=== PATIENT | female | born 1980 | race Caucasian/White ===

== ENCOUNTER 2020-08-08 09:24 | Outpatient (REF) | payer OTHER, MEDICAID, SELFPAY ==
[2020-08-08 11:04] LABS: MANUAL DIFF FLAG NO
[2020-08-08 11:12] LABS: Basophils Percent Auto 0.7 % (0-2); Eosinophils Absolute Auto 0.2 X10*3/uL (0.0-0.4); Eosinophils Percent Auto 4.2 % (0-4); Hematocrit 31.6 % (37-47); Hemoglobin 9.8 g/dl (12.0-16.0); Imm Gran Abs Auto 0.01 X10*3/uL (0.00-0.03); Imm Gran Pct Auto 0.2 % (0.0-0.4); Lymphocytes Absolute Auto 2.2 X10*3/uL (1.2-4.9); Lymphocytes Percent Auto 49.6 % (20-40); Mean Corpuscular Volume 80.6 fL (80-98); Mean Platelet Volume 10.6 fL (9.4-12.3); Monocytes Absolute Auto 0.4 X10*3/uL (0.1-1.2); Monocytes Percent Auto 8.9 % (2-11); Neutrophils Absolute Auto 1.6 X10*3/uL (2.0-8.3); Neutrophils Percent Auto 36.4 % (45-73); Platelet Count 244 X10*3/uL (160-400); Red Blood Count 3.92 X10*6/uL (4.20-5.50); Red Cell Distribution Width 13.9 % (11.0-16.0); White Blood Count 4.5 X10*3/uL (4.8-10.8)
[2020-08-08 12:08] LABS: Thyroid Stimulating Hormone 2.96 uIU/mL (0.32-4.0)
[2020-08-09 09:13] LABS: BV Int Neg Control Negative (Negative); BV Int Pos Control Positive (Positive)
[2020-08-09 18:27] LABS: C. trachomatis RNA TMA NOT DETECTED (NOT DETECTED); N. gonorrhoeae RNA TMA NOT DETECTED (NOT DETECTED)
[2020-08-14 02:32] LABS: HPV mRNA E6/E7 rflx Not Detected (Not Detected)
== END 2020-08-08 09:25 | disposition home or self-care (01) ==
LOC: HO.LAB 09:24
PROVIDERS: PCP Internal Medicine; Visit Provider Advanced Practice Midwife
DX: Z12.4 Encounter for screening for malignant neoplasm of cervix (principal); N93.9 Abnormal uterine and vaginal bleeding, unspecified; N92.1 Excessive and frequent menstruation with irregular cycle
CPT/HCPCS: 36415; 84443; 85025; 87480; 87491; 87510; 87591; 87624; 87660; 88142

== ENCOUNTER 2020-08-20 10:38 | Outpatient (REF) | payer OTHER, MEDICAID, SELFPAY ==
--- NOTE | 2020-08-20 10:43 | MM_ITS ---
EXAMINATION: MM SCREENING DIGITAL MAMMOGRAPHY, BILATERAL CLINICAL INFORMATION: Screening. Asymptomatic. No prior breast imaging. Age 40. No known family history breast cancer. The lifetime risk of breast cancer based on the Tyrer-Cuzick Model is 9%. COMPARISON: None (current study represents initial baseline exam). TECHNIQUE: Digital mammography is performed in craniocaudal and mediolateral oblique views along with computer-aided detection (CAD). FINDINGS: There are scattered areas of fibroglandular density (ACR BI-RADS breast composition Category b). There are no significant masses, abnormal calcifications, or other abnormalities. The axilla and skin contours are unremarkable. MM/MM screening mammo BI IMPRESSION: No mammographic evidence of malignancy. ASSESSMENT: BI-RADS 1: Negative RECOMMENDATION: Routine annual mammography screening. This patient's information was entered into a reminder system with a target due date for their next mammogram.
== END 2020-08-20 10:39 | disposition home or self-care (01) ==
LOC: HO.MAMMO 10:38
PROVIDERS: Visit Provider Advanced Practice Midwife
DX: Z12.31 Encounter for screening mammogram for malignant neoplasm of breast (principal)
CPT/HCPCS: 77067

== ENCOUNTER 2020-08-21 11:09 | Outpatient (REF) | payer OTHER, MEDICAID, SELFPAY ==
--- NOTE | 2020-08-21 11:13 | US_ITS ---
EXAMINATION: PELVIC ULTRASOUND CLINICAL INFORMATION: Abnormal uterine vaginal bleeding COMPARISON: Previous CT of the abdomen and pelvis December 2015 and pelvic ultrasound November 2015 TECHNIQUE: Transabdominal and transvaginal pelvic ultrasound was performed. Transvaginal exam was performed for better visualization of the uterus and ovaries. FINDINGS: Uterus is anteverted and measures 8.2 x 4.4 x 5.1 cm in dimension. No focal uterine lesion is seen. Endometrial thickness is normal estimated at 1.1 cm. The right ovary is normal-appearing and measures 2.6 x 1.4 x 1.6 cm. The left ovary measures 2.8 x 1.9 x 2 cm and contains a 1.7 x 1.6 x 1.8 cm simple cyst. There is no fluid in the pelvis. US/US pelvic complete IMPRESSION: Unremarkable exam.
--- NOTE | 2020-08-21 11:13 | US_ITS ---
EXAMINATION: PELVIC ULTRASOUND CLINICAL INFORMATION: Abnormal uterine vaginal bleeding COMPARISON: Previous CT of the abdomen and pelvis December 2015 and pelvic ultrasound November 2015 TECHNIQUE: Transabdominal and transvaginal pelvic ultrasound was performed. Transvaginal exam was performed for better visualization of the uterus and ovaries. FINDINGS: Uterus is anteverted and measures 8.2 x 4.4 x 5.1 cm in dimension. No focal uterine lesion is seen. Endometrial thickness is normal estimated at 1.1 cm. The right ovary is normal-appearing and measures 2.6 x 1.4 x 1.6 cm. The left ovary measures 2.8 x 1.9 x 2 cm and contains a 1.7 x 1.6 x 1.8 cm simple cyst. There is no fluid in the pelvis. US/US transvaginal IMPRESSION: Unremarkable exam.
== END 2020-08-21 11:10 | disposition home or self-care (01) ==
LOC: HO.US 11:09
PROVIDERS: Visit Provider Advanced Practice Midwife
DX: N93.9 Abnormal uterine and vaginal bleeding, unspecified (principal)
CPT/HCPCS: 76830; 76856

== ENCOUNTER 2020-11-16 16:52 | Outpatient (REF) | payer OTHER, MEDICAID, SELFPAY ==
--- NOTE | ~2020-11-16 | US_ITS ---
EXAMINATION: US VENOUS ULTRASOUND WITH DOPPLER LOWER EXTREMITY, RIGHT CLINICAL INFORMATION: Pain COMPARISON: None TECHNIQUE: Ultrasound of the deep veins is performed from the hip to the calf with compression sonography and color and pulse Doppler assessment. Spectral analysis with color-flow imaging is performed. FINDINGS: There is normal venous compression and respiratory variation and augmented flow. The visualized common femoral vein, superficial femoral vein, profunda femoral vein, popliteal vein, and the trifurcation region shows no evidence of deep venous thrombosis. There is no significant popliteal fossa cyst. If the patient's symptoms persist, followup ultrasound in 5 days 7 days might be of value to exclude proximal propagation from a non-visualized calf vein. US/US venous duplex LE RT IMPRESSION: No DVT demonstrated in the right lower extremity.
== END 2020-11-16 16:53 | disposition home or self-care (01) ==
LOC: HO.US 16:52
PROVIDERS: PCP Internal Medicine; Visit Provider Nurse Practitioner Family
DX: M79.661 Pain in right lower leg (principal)
CPT/HCPCS: 93971

== ENCOUNTER → 2020-12-03 10:21 | Outpatient (BNV) | payer OTHER, MEDICAID, SELFPAY | PROVIDERS: PCP Internal Medicine; Visit Provider Internal Medicine | DX: I26.99 Other pulmonary embolism without acute cor pulmonale (principal) | CPT/HCPCS: 99213; 99214 ==

== ENCOUNTER 2020-12-05 15:51 | Outpatient (REF) | payer OTHER, MEDICAID, SELFPAY ==
--- NOTE | ~2020-12-05 | US_ITS ---
EXAMINATION: US VENOUS ULTRASOUND WITH DOPPLER LOWER EXTREMITY, BILATERAL CLINICAL INFORMATION: Left lower leg pain. COMPARISON: None TECHNIQUE: Ultrasound of the deep veins is performed from the hip to the calf with compression sonography and color and pulse Doppler assessment. Spectral analysis with color-flow imaging is performed. FINDINGS: RIGHT: There is normal venous compression and respiratory variation and augmented flow. The visualized common femoral vein, superficial femoral vein, profunda femoral vein, popliteal vein, and the trifurcation region shows no evidence of deep venous thrombosis. There is no popliteal cyst. The subcutaneous soft tissues are unremarkable. LEFT: There is normal venous compression and respiratory variation and augmented flow. The visualized common femoral vein, superficial femoral vein, profunda femoral vein, popliteal vein, and the trifurcation region shows no evidence of deep venous thrombosis. There is no popliteal cyst. The subcutaneous soft tissues are unremarkable. If the patient's symptoms persist, followup ultrasound in 5 days 7 days might be of value to exclude proximal propagation from a non-visualized calf vein. US/US venous duplex LE BI IMPRESSION: No evidence for deep venous thrombosis in the visualized veins of the bilateral lower extremities.
== END 2020-12-05 15:52 | disposition home or self-care (01) ==
LOC: HO.US 15:51
PROVIDERS: PCP Internal Medicine; Visit Provider Internal Medicine
DX: M79.662 Pain in left lower leg (principal)
CPT/HCPCS: 93970

== ENCOUNTER 2021-01-11 08:03 | Outpatient (REF) | payer OTHER, MEDICAID, SELFPAY | END 2021-01-11 08:04 | disposition home or self-care (01) | LOC: HO.MDS 08:03 | PROVIDERS: PCP Internal Medicine; Visit Provider Internal Medicine | DX: D50.9 Iron deficiency anemia, unspecified (principal) | CPT/HCPCS: 96365; 96366; J1200; J1750; Q0163 ==

== ENCOUNTER 2021-01-18 10:58 | Emergency (ER) | payer OTHER, MEDICAID, SELFPAY ==
--- NOTE | ~2021-01-18 | XR_ITS ---
EXAMINATION: XR CHEST CLINICAL INFORMATION: Chest pain. COMPARISON: Chest radiographs dated 07/26/2019. TECHNIQUE: Frontal view of the chest was obtained. FINDINGS: No significant abnormality is noted involving the heart, lungs, mediastinum, bony thorax or soft tissues. XR/XR chest 1V IMPRESSION: Unremarkable examination.
--- NOTE | ~2021-01-18 | CT_ITS ---
EXAMINATION: CT ANGIOGRAM OF THE CHEST WITH AND WITHOUT CONTRAST (CT PULMONARY ANGIOGRAM FOR PE) CLINICAL INFORMATION: Reason for Exam history of PE now with pleuritic chest pain COMPARISON: Previous chest x-ray most recent from earlier the same day TECHNIQUE: Prior to contrast administration, noncontrast localization images were obtained. Subsequently, multidetector volumetric imaging was performed from the thoracic inlet to below the diaphragms following the administration of 80 mL Omnipaque 350 intravenous contrast. No contrast reaction reported Sagittal, coronal, and MIP oblique sagittal reformatted images were obtained on the CT workstation, uploaded to PACS, and reviewed. This CT examination was performed using dose optimization techniques as appropriate, variously including the following: *Automated exposure control *Adjustment of mA and/or kV according to patient size (this includes techniques or standardized protocols for targeted exams where dose is matched to indication/reason for exam; i.e. extremities or head) *Use of iterative reconstruction technique Total exam dose-length product 292 mGy-cm FINDINGS: QUALITY OF STUDY/CONTRAST BOLUS: Satisfactory. PULMONARY ARTERIES: No central or segmental pulmonary emboli. THORACIC AORTA: No aneurysm or dissection. LUNG: There is a 3 mm peripheral or subpleural left upper lobe nodule axial image 84 series 7. There is a 4 mm peripheral or subpleural right upper lobe nodule adjacent to the major fissure axial image 129 series 7. There is a 2 mm calcified right lower lobe nodule axial image 253 series 7. The lungs are otherwise clear. PLEURA: No pleural effusion or pneumothorax. MEDIASTINUM: Normal heart size. No pericardial effusion. There are small bilateral hilar lymph nodes. No enlarged hilar or mediastinal lymphadenopathy. No evidence of septal bowing or right heart strain. CHEST WALL/AXILLA: There are small bilateral axillary lymph nodes. No enlarged axillary lymph nodes or chest wall mass is seen. OSSEOUS STRUCTURES: No acute or suspicious osseous abnormality. UPPER ABDOMEN: There are postsurgical changes to the stomach. No reflux of contrast into the hepatic veins to suggest elevated right heart pressures. CT/CT angio chest PE protocol IMPRESSION: No evidence of pulmonary embolism. Small bilateral pulmonary nodules, largest measuring 4 mm. According to the UPDATED 2017 Fleischner Society recommendations, the advised follow-up imaging for less than 6 mm nodule: Low risk, no chest CT follow-up and high risk, optional chest CT follow-up in one year. VTE: negative
[2021-01-18 11:25] VITALS: BP 103/74; PULSE 65; RESP 18; TEMP 36.7; O2SAT 99; BMI 30.2
--- NOTE | 2021-01-18 11:37 | ED_ITS ---
HPI - Chest Pain General Chief Complaint: Chest Pain Stated Complaint: chest pain Time Seen by Provider: 01/18/21 11:24 Source: patient Mode of arrival: ambulatory Limitations: no limitations History of Present Illness HPI narrative: Patient presents to ED for pleuritic chest pain, tingling left upper extremity, and burning sensation in throat for 3 days. Patient states no fever, coughing, chills, abdominal pain, recent trauma, dysuria, hematuria, flank pain, swelling of lower extremities, calf pain, coughing up blood. Patient states she was compliant with Eliquis. Patient denies any rectal bleeding, vomiting blood, coughing up blood. Related Data Home Medications Medication Instructions Recorded Confirmed acetaminophen [Mapap Arthritis 1 tab PO BID 12/03/20 12/28/20 Pain] apixaban [Eliquis] 1 tab PO BID 12/03/20 01/18/21 Previous Rx's Medication Instructions Recorded ferrous sulfate [Feosol] 325 mg PO BID #60 tab 12/04/20 chlorhexidine gluconate 0.12 % 15 ml MUCOUS MEMBRANE BID 7 Days 12/11/20 mouthwash #210 ml lidocaine HCl 2 % mucosal solution 15 ml MUCOUS MEMBRANE QID PRN 7 12/11/20 Days #100 ml alum-mag hydroxide-simeth [Maalox 10 ml PO Q6H PRN #3000 ml 01/18/21 Advanced] famotidine [Pepcid] 20 mg PO BID 15 Days #30 tab 01/18/21 Allergies Allergy/AdvReac Type Severity Reaction Status Date / Time latex Allergy Rash Verified 01/18/21 10:31 Review of Systems Review of Systems: Yes all other systems are reviewed and are negative Constitutional: Constitutional: Reports as per HPI and Reports no additional constitutional complaints Eyes: Eyes: Reports as per HPI and Reports no additional eye complaints ENT: Reports system reviewed and no additional complaints, except as documented and Reports as per HPI Comments: Burning sensation in throat. Cardiovascular: Cardiovascular: Reports as per HPI, Reports no additional cardiovascular complaints and Reports chest pain (Pleuritic) Respiratory: Respiratory: Reports as per HPI, Reports no additional respiratory complaints and Reports pain on inspiration Gastrointestinal: Gastrointestinal: Reports as per HPI, Reports no additional gastrointestinal complaints and Reports heartburn Genitourinary: Genitourinary: Reports no additional female genitourinary complaints and Reports as per HPI Musculoskeletal: Musculoskeletal: Reports no additional musculoskeletal complaints and Reports as per HPI Neurologic: Reports system reviewed and no additional complaints, except as documented and Reports as per HPI Psychiatric: Psychiatric: Reports no additional psychiatric complaints and Reports as per HPI [facility] Past Medical History Medical History Abnormal uterine bleeding (AUB) Anemia Eczema Pulmonary embolism Thyroid nodule Ulnar neuropathy Surgical History H/O toe surgery Hx of tubal ligation Family History Family History Father Hyperlipidemia Heart disease Mother Hyperlipidemia Diabetes mellitus Social History Social History Alcohol intake: never Patient Tobacco Use Status: Former Tobacco user Quit Date: quit 6 years ago Smoked in Last 30 Days: No Use of substances other than those prescribed or required for medical reasons: No Advance Directives: No Advance Directives Information Provided: No Patient : No Sexual orientation: Straight/Heterosexual Physical Exam Vital Signs: Vital Signs: Last Vital Signs Temp 98.3 F 01/18/21 16:24 Pulse 60 01/18/21 16:24 Resp 18 01/18/21 16:24 BP 111/62 01/18/21 16:24 Pulse Ox 99 01/18/21 16:24 Body Mass Index 30.2 Const: General: cooperative, healthy appearing, comfortable, no acute distress, well developed, alert, awake and Physically active Orientation/consciousness: patient oriented x3 HENMT: Head: Yes normal to inspection, Yes No palpable skull fracture present, Yes normocephalic, Yes atraumatic and No abrasion Eyes: General: appearance normal, both eyes and all related structures Neck: Neck: Yes normal visual inspection, Yes full ROM, Yes no lymphadenopathy, Yes no meningeal signs, Yes trachea midline, Yes supple and No tender Chest: Chest palpation & inspection: normal inspection of the chest and normal palpation of entire chest wall Resp: Effort & Inspection: normal respiratory effort and able to speak in complete sentences Auscultation: clear to auscultation bilaterally Cardio: Jugular venous distension: no JVD Heart sounds: S1 normal heart sound present and S2 normal heart sound present GI: Inspection: Yes normal to inspection and No abdominal wall ecchymosis Palpation (GI): Soft to palpation, not firm, nontender, no guarding and not rigid : General: No CVA tenderness and Yes no CVA tenderness Back/Spine/Pelvis: Back: no CVA tenderness, No CVA tenderness and No back tenderness Skin: General skin exam: no rashes or lesions noted and elasticity normal Neuro: Other: Negative for any neuro deficit General: patient oriented x3, gait normal, no meningeal signs and CN's II-XI intact bilaterally Cranial nerves: Yes CN's II-XII intact bilaterally Extrem: Other: lower Extremities negative for swelling, pitting edema, or calf tenderness General: Yes normal to inspection and Yes full ROM Psych: Appearance: grossly normal, well kempt and not disheveled Course Course Course Narrative: Patient will have medical evaluation. EKG troponin will be ordered. Patient presents for repeat chest CTA. Patient given GI cocktail Reevaluation(s) Reevaluation #1: Patient's initial troponin negative. Patient chest x-ray normal. Patient COVID swab negative. Patient liver enzymes have been negative. Due to history of recent PE and pleuretic chest pain patient will be sent for chest CT to rule out PE. BNP negative. Patient's symptoms improved after GI cocktail Time: 12:10 Reevaluation #2: Chest CTA came back negative for PE, pneumonia, or dissection. Second troponin negative. Patient is safe for discharge. Patient made aware of pulmonary nodules. Time: 17:48 MDM - Chest Pain MDM Narrative Medical decision making narrative: GERD pleurisy Lab Data Result diagrams: 01/18/21 12:10 01/18/21 12:10 Labs: Lab Results 01/18/21 01/18/21 01/18/21 Range/Units 12:10 12:10 12:10 WBC 4.0 L (4.8-10.8) X10*3/uL RBC 4.15 L (4.20-5.50) X10*6/uL Hgb 11.0 L (12.0-16.0) g/dl Hct 34.1 L (37-47) % MCV 82.2 (80-98) fL MCH 26.5 L (27.0-33.0) pg MCHC 32.3 (31.0-35.0) g/dl RDW 18.3 H (11.0-16.0) % Plt Count 205 D (160-400) X10*3/uL MPV 9.8 (9.4-12.3) fL Immature Gran % (Auto) 0.2 (0.0-0.4) % Neut % (Auto) 53.3 (45-73) % Lymph % (Auto) 32.8 (20-40) % Bullitt % (Auto) 9.0 (2-11) % Eos % (Auto) 4.0 (0-4) % Baso % (Auto) 0.7 (0-2) % Lymph # (Auto) 1.3 (1.2-4.9) X10*3/uL Bullitt # (Auto) 0.4 (0.1-1.2) X10*3/uL Eos # (Auto) 0.2 (0.0-0.4) X10*3/uL Baso # (Auto) 0.0 (0.0-0.2) X10*3/uL Abs Immat Gran (auto) 0.01 (0.00-0.03) X10*3/uL Absolute Neuts (auto) 2.1 (2.0-8.3) X10*3/uL Absolute Nucleated RBC 0.000 (0.0-0.012) X10*3/uL Nucleated RBC % (auto) 0.0 (0.0-0.2) /100WBC PT 16.6 H (10.8-13.0) SEC INR 1.4 H (0.9-1.1) APTT 39.7 H (24.1-38.0) SEC Sodium 138 (135-145) mmol/L Potassium 4.5 (3.3-5.1) mmol/L Chloride 105 (96-108) mmol/L Carbon Dioxide 26 (22-29) mmol/L Anion Gap 12 (12-20) BUN 10 D (9-16) mg/dL Creatinine 0.66 (0.5-1.4) mg/dL Estim Creat Clear Calc 120.2 Estimated GFR > 60 Random Glucose 86 (60-115) mg/dL Calcium 8.9 (8.4-10.2) mg/dL Total Bilirubin 0.2 (0.0-1.0) mg/dL AST 29 D (5-31) U/L ALT 32 H (0-31) U/L Alkaline Phosphatase 72 (39-117) U/L Troponin I High Sens (<3.5-17.0) ng/L B-Natriuretic Peptide (<100) pg/mL Total Protein 6.8 (6.5-8.0) g/dL Albumin 4.0 (3.5-5.0) g/dL Beta HCG, Quant < 2 mIU/mL COVID-19 (ERIBERTO) (Negative) COVID-19 Clin Com 01/18/21 01/18/21 01/18/21 Range/Units 12:10 14:31 16:19 WBC (4.8-10.8) X10*3/uL RBC (4.20-5.50) X10*6/uL Hgb (12.0-16.0) g/dl Hct (37-47) % MCV (80-98) fL MCH (27.0-33.0) pg MCHC (31.0-35.0) g/dl RDW (11.0-16.0) % Plt Count (160-400) X10*3/uL MPV (9.4-12.3) fL Immature Gran % (Auto) (0.0-0.4) % Neut % (Auto) (45-73) % Lymph % (Auto) (20-40) % Bullitt % (Auto) (2-11) % Eos % (Auto) (0-4) % Baso % (Auto) (0-2) % Lymph # (Auto) (1.2-4.9) X10*3/uL Bullitt # (Auto) (0.1-1.2) X10*3/uL Eos # (Auto) (0.0-0.4) X10*3/uL Baso # (Auto) (0.0-0.2) X10*3/uL Abs Immat Gran (auto) (0.00-0.03) X10*3/uL Absolute Neuts (auto) (2.0-8.3) X10*3/uL Absolute Nucleated RBC (0.0-0.012) X10*3/uL Nucleated RBC % (auto) (0.0-0.2) /100WBC PT (10.8-13.0) SEC INR (0.9-1.1) APTT (24.1-38.0) SEC Sodium (135-145) mmol/L Potassium (3.3-5.1) mmol/L Chloride (96-108) mmol/L Carbon Dioxide (22-29) mmol/L Anion Gap (12-20) BUN (9-16) mg/dL Creatinine (0.5-1.4) mg/dL Estim Creat Clear Calc Estimated GFR Random Glucose (60-115) mg/dL Calcium (8.4-10.2) mg/dL Total Bilirubin (0.0-1.0) mg/dL AST (5-31) U/L ALT (0-31) U/L Alkaline Phosphatase (39-117) U/L Troponin I High Sens < 3.5 < 3.5 (<3.5-17.0) ng/L B-Natriuretic Peptide 19 (<100) pg/mL Total Protein (6.5-8.0) g/dL Albumin (3.5-5.0) g/dL Beta HCG, Quant mIU/mL COVID-19 (ERIBERTO) Negative (Negative) COVID-19 Clin Com See Note ECG Data ECG #1: Interpretation: Normal sinus rhythm. Low-voltage QRS. Ventricular rate 61. Pr interval 130. QRS 88. QTC 424. Negative STEMI Discharge Plan Discharge Clinical Impression: Pleurisy, GERD (gastroesophageal reflux disease) Patient Disposition: Home, Self-Care Instructions: Chest Pain (ED), Pleurisy (ED), Gastroesophageal Reflux Disease (ED) Additional Instructions: Return to the ED immediately for worsening chest pain, shortness of breath, swelling of lower extremities, calf pain, coughing up blood, abdominal pain, fever, chills, rectal bleeding, vomiting blood, or any other concerning symptoms. Your EKG and troponin were negative for heart attack. Chest CTA was negative for blood clot, pneumonia, or dissection. Your liver enzymes were normal. Kidney function were normal. Your blood cell count is as your baseline. Negative elevated white blood cell count. Please follow-up with your PCP Prescriptions: New famotidine [Pepcid] 20 mg tablet 20 mg PO BID 15 Days Qty: 30 RF: 0 alum-mag hydroxide-simeth [Maalox Advanced] 200-200-20 mg/5 mL suspension 10 ml PO Q6H PRN (Reason: GERD) Qty: 3000 RF: 0 No Action acetaminophen [Mapap Arthritis Pain] 650 mg tablet extended release 1 tab PO BID RF: 0 Eliquis 5 mg tablet 1 tab PO BID RF: 0 ferrous sulfate [Feosol] 325 mg (65 mg iron) Tablet 325 mg PO BID Qty: 60 RF: 3 lidocaine HCl [Lidocaine Viscous] 2 % solution 15 ml mucous membrane QID PRN (Reason: pain) 7 Days Qty: 100 RF: 0 chlorhexidine gluconate 0.12 % mouthwash 15 ml mucous membrane BID 7 Days Qty: 210 RF: 0 Referrals: Cydney Kern MD [Primary Care Provider] - 2 days (Seen in the ED for pleuritic chest pain and GERD like symptoms. EKG was normal. Troponins were negative. Chest CTA negative for PE.) Stand Alone Forms: Work/School Release Discharge Date/Time: 01/18/21 18:10 Print Language: Chinese
--- NOTE | 2021-01-18 11:37 | ECG_ITS ---
Test Reason : CHEST PAIN Blood Pressure : / mmHG Vent. Rate : 061 BPM Atrial Rate : 061 BPM P-R Int : 130 ms QRS Dur : 088 ms QT Int : 422 ms P-R-T Axes : -01 060 026 degrees QTc Int : 424 ms Normal sinus rhythm Low voltage QRS Borderline ECG When compared with ECG of 27-DEC-2015 22:43, No significant changes seen Referred By: Jeremiah Tinoco Electronically Signed By:MURALI ORTEZ
[2021-01-18 12:00] VITALS: BP 101/68; PULSE 61; RESP 15; TEMP 36.8; O2SAT 98
[2021-01-18 12:15] LABS: MANUAL DIFF FLAG NO
[2021-01-18 12:16] LABS: Basophils Percent Auto 0.7 % (0-2); Eosinophils Absolute Auto 0.2 X10*3/uL (0.0-0.4); Hematocrit 34.1 % (37-47); Imm Gran Abs Auto 0.01 X10*3/uL (0.00-0.03); Imm Gran Pct Auto 0.2 % (0.0-0.4); Lymphocytes Absolute Auto 1.3 X10*3/uL (1.2-4.9); Lymphocytes Percent Auto 32.8 % (20-40); Mean Corpuscular HGB Conc 32.3 g/dl (31.0-35.0); Mean Corpuscular Hemoglobin 26.5 pg (27.0-33.0); Mean Corpuscular Volume 82.2 fL (80-98); Mean Platelet Volume 9.8 fL (9.4-12.3); Monocytes Absolute Auto 0.4 X10*3/uL (0.1-1.2); Neutrophils Absolute Auto 2.1 X10*3/uL (2.0-8.3); Neutrophils Percent Auto 53.3 % (45-73); Platelet Count 205 X10*3/uL (160-400); Red Blood Count 4.15 X10*6/uL (4.20-5.50); Red Cell Distribution Width 18.3 % (11.0-16.0)
[2021-01-18 12:21] LABS: INTERNATIONAL NORM RATIO 1.4 (0.9-1.1); Prothrombin Time 16.6 SEC (10.8-13.0)
[2021-01-18 12:24] LABS: Partial Thromboplastin Time 39.7 SEC (24.1-38.0)
[2021-01-18 12:39] LABS: Alanine Aminotransferase 32 U/L (0-31); Alkaline Phosphatase 72 U/L (39-117); Anion Gap 12 (12-20); Aspartate Amino Transferase 29 U/L (5-31); Bilirubin Total 0.2 mg/dL (0.0-1.0); Blood Urea Nitrogen 10 mg/dL (9-16); Calcium 8.9 mg/dL (8.4-10.2); Carbon Dioxide 26 mmol/L (22-29); Chloride 105 mmol/L (96-108); Creatinine Clr Calc Pharmacy 120.2; Estimated Glomerular Filt Rate > 60; Glucose Random 86 mg/dL (60-115); Potassium 4.5 mmol/L (3.3-5.1); Sodium 138 mmol/L (135-145); Total Protein 6.8 g/dL (6.5-8.0)
[2021-01-18 12:46] LABS: B Type Natriuretic Peptide 19 pg/mL (<100); Troponin-I High Sensitivity < 3.5 ng/L (<3.5-17.0)
[2021-01-18 12:47] LABS: HCG Quantitative < 2 mIU/mL
[2021-01-18 14:34] VITALS: BP 102/64; PULSE 63; RESP 13; TEMP 36.9; O2SAT 100
--- NOTE | 2021-01-18 14:44 | PC.NURSE ---
TAKEN TO CT SCAN, WORKUP NEGATIVE ON LAB WORK. NAD. WILL MEDICATE FOR PAIN ONCE BACK FROM CT SCAN.
[2021-01-18] MEDS: Famotidine/PF 20 MG/2 ML VIAL IVPUSH (14:52)
[2021-01-18] MEDS: 0.9 % Sodium Chloride 1,000 ML 999 ML IV (14:52)
[2021-01-18] MEDS: Lidocaine HCl Viscous 2 % 15 ML SOLUTION MUCOUS MEM (14:52)
[2021-01-18] MEDS: Magnesium Hydrox/Alum Hydrox 30 ML ORAL.SUSP PO (14:52)
[2021-01-18] MEDS: iohexoL 350 MG/ML 100 ML INFUS..BTL IV (14:54)
[2021-01-18 15:05] LABS: COVID-19 Test Negative (Negative)
[2021-01-18 16:24] VITALS: BP 111/62; PULSE 60; RESP 18; TEMP 36.8; O2SAT 99
[2021-01-18 17:06] LABS: Troponin-I High Sensitivity < 3.5 ng/L (<3.5-17.0)
== END 2021-01-18 18:10 | disposition home or self-care (01) ==
PROVIDERS: Physician Assistant; Emergency Provider Emergency Medicine; PCP Internal Medicine
DX: R09.1 Pleurisy (principal); K21.9 Gastro-esophageal reflux disease without esophagitis; Z86.711 Personal history of pulmonary embolism; Z79.01 Long term (current) use of anticoagulants; Z20.822 Contact with and (suspected) exposure to COVID-19
CPT/HCPCS: 36415; 71045; 71275; 80053; 83880; 84484; 84702; 85025; 85610; 85730; 87635; 93005; 96361; 96374; 99285; Q9967

== ENCOUNTER 2021-06-05 15:42 | Outpatient (REF) | payer OTHER, MEDICAID, SELFPAY ==
--- NOTE | ~2021-06-05 | XR_ITS ---
EXAMINATION: XR SHOULDER, LEFT CLINICAL INFORMATION: Left shoulder pain COMPARISON: None TECHNIQUE: Three views of the left shoulder. FINDINGS: No fracture or dislocation. The glenohumeral joint is well aligned. The joint space is maintained. The acromioclavicular joint is intact. The visualized lung is clear. The visualized ribs are intact. XR/XR shoulder LT min 2V IMPRESSION: Normal left shoulder.
== END 2021-06-05 15:43 | disposition home or self-care (01) ==
LOC: HO.HMGCX 15:42
PROVIDERS: Visit Provider Internal Medicine
DX: M25.512 Pain in left shoulder (principal)
CPT/HCPCS: 73030

== ENCOUNTER 2021-06-13 08:38 | Outpatient (REF) | payer OTHER, MEDICAID, SELFPAY ==
--- NOTE | 2021-06-13 08:41 | EMG_ITS ---
Bilateral tibial and peroneal motor studies were performed. Bilateral superficial peroneal and sural sensory studies were performed. Tibial H-reflexes were obtained and paraspinal muscles were tested with a needle. IMPRESSION: This study revealed mild to moderate, demyelinating and axonal, somewhat patchy peripheral neuropathy. I recommend investigating for conditions that could result in this type of neuropathy including autoimmune causes. MD SY Dominguez/KYA / [id number]
== END 2021-06-13 08:39 | disposition home or self-care (01) ==
LOC: HO.NEURO 08:38
PROVIDERS: Visit Provider Internal Medicine
DX: R20.8 Other disturbances of skin sensation (principal)
CPT/HCPCS: 95861; 95886; 95911

== ENCOUNTER 2021-08-01 08:58 | Outpatient (REF) | payer OTHER, MEDICAID, SELFPAY ==
[2021-08-01 09:47] LABS: Rheumatoid Factor < 15.0 IU/mL (<15.0)
[2021-08-01 10:09] LABS: HIV AB/AG Nonreactive (Nonreactive)
[2021-08-01 10:35] LABS: HIV Num 1 0.07 S/CO (0.00-0.99)
[2021-08-01 15:45] LABS: Influenza A PCR NEGATIVE (Negative); Influenza B PCR NEGATIVE (Negative); Resp Syncy Virus RNA Qual PCR NEGATIVE (Negative); SARS COV2 PCR INHOUSE POSITIVE (Negative)
[2021-08-02 05:02] LABS: Lyme Abs Screen <0.90 index
[2021-08-02 08:44] LABS: Syphilis Screen Nonreactive (Nonreactive)
[2021-08-04 13:05] LABS: Anti Nuclear Antibody Screen NEGATIVE (NEGATIVE)
[2021-08-05 11:31] LABS: Complement C3 112 mg/dL (83-193)
[2021-08-06 16:21] LABS: Anti DNA DS Antibody <1 IU/mL
== END 2021-08-01 08:59 | disposition home or self-care (01) ==
LOC: HO.LAB 08:58
PROVIDERS: Physician Assistant; PCP Internal Medicine; Visit Provider Psychiatry & Neurology Neurology
DX: Z11.4 Encounter for screening for human immunodeficiency virus [HIV] (principal); Z20.822 Contact with and (suspected) exposure to COVID-19; J02.9 Acute pharyngitis, unspecified
CPT/HCPCS: 0241U; 86038; 86039; 86160; 86225; 86335; 86431; 86617; 86618; 86780; 87389

== ENCOUNTER → 2021-08-12 12:55 | Outpatient (BNVA) | payer OTHER, MEDICAID, SELFPAY | PROVIDERS: PCP Internal Medicine; Visit Provider Advanced Practice Midwife ==

== ENCOUNTER 2021-08-12 14:02 | Outpatient (REF) | payer OTHER, MEDICAID, SELFPAY ==
[2021-08-12 15:22] LABS: Thyroid Stimulating Hormone 1.26 uIU/mL (0.32-4.0)
[2021-08-13 10:47] LABS: Follicle Stimulating Hormone 5.9 mIU/mL
== END 2021-08-12 14:03 | disposition home or self-care (01) ==
LOC: HO.LAB 14:02
PROVIDERS: PCP Internal Medicine; Visit Provider Advanced Practice Midwife
DX: R23.2 Flushing (principal)
CPT/HCPCS: 36415; 83001; 84443

== ENCOUNTER 2022-02-19 14:48 | Outpatient (REF) | payer OTHER, MEDICAID, SELFPAY ==
--- NOTE | ~2022-02-19 | XR_ITS ---
EXAMINATION: XR LUMBOSACRAL SPINE CLINICAL INFORMATION: Radiculopathy. COMPARISON: None TECHNIQUE: Three views of the lumbosacral spine. FINDINGS: There is normal lumbar lordosis. The vertebral heights, alignment and disc heights are normal. There is no visible acute fracture, dislocation or lytic process seen. The soft tissues are normal XR/XR lumbar spine 2-3V IMPRESSION: Unremarkable lumbar spine exam.
[2022-02-19 16:24] LABS: MANUAL DIFF FLAG NO
[2022-02-19 16:28] LABS: Basophils Percent Auto 0.5 % (0-2); Eosinophils Absolute Auto 0.2 X10*3/uL (0.0-0.4); Eosinophils Percent Auto 3.8 % (0-4); Hematocrit 38.1 % (37.0-47.0); Hemoglobin 12.6 g/dl (12.0-16.0); Imm Gran Abs Auto 0.01 X10*3/uL (0.00-0.03); Imm Gran Pct Auto 0.3 % (0.0-0.4); Lymphocytes Absolute Auto 1.5 X10*3/uL (1.2-4.9); Lymphocytes Percent Auto 37.1 % (20-40); Mean Corpuscular HGB Conc 33.1 g/dl (31.0-35.0); Mean Corpuscular Hemoglobin 29.8 pg (27.0-33.0); Mean Corpuscular Volume 90.1 fL (80.0-98.0); Mean Platelet Volume 10.3 fL (9.4-12.3); Monocytes Absolute Auto 0.3 X10*3/uL (0.1-1.2); Monocytes Percent Auto 8.1 % (2-11); Neutrophils Percent Auto 50.2 % (45-73); Platelet Count 229 X10*3/uL (160-400); Red Blood Count 4.23 X10*6/uL (4.20-5.50); Red Cell Distribution Width 12.5 % (11.0-16.0)
[2022-02-19 16:50] LABS: Estimated Average Glucose 91 mg/dL; Hemoglobin A1c % 4.8 %
[2022-02-19 16:59] LABS: Alanine Aminotransferase 23 U/L (0-31); Albumin Level 4.1 g/dL (3.5-5.0); Alkaline Phosphatase 77 U/L (39-117); Anion Gap 7 (12-20); Aspartate Amino Transferase 22 U/L (5-31); Bilirubin Total 0.3 mg/dL (0.0-1.0); Blood Urea Nitrogen 11 mg/dL (9-16); Calcium 8.7 mg/dL (8.4-10.2); Carbon Dioxide 31 mmol/L (22-29); Chloride 104 mmol/L (96-108); Estimated Glomerular Filt Rate > 60; Glucose Random 74 mg/dL (60-115); Potassium 4.2 mmol/L (3.3-5.1); Sodium 138 mmol/L (135-145); Total Protein 6.9 g/dL (6.5-8.0)
[2022-02-19 17:21] LABS: Vitamin B12 257 pg/mL (200-900)
[2022-02-25 14:06] LABS: Vitamin D 25-OH, D2 <4 ng/mL; Vitamin D 25-OH, D3 18 ng/mL; Vitamin D 25-OH, Total 18 ng/mL (30-100)
== END 2022-02-19 14:49 | disposition home or self-care (01) ==
LOC: HO.HMGCX 14:48
PROVIDERS: PCP Internal Medicine; Visit Provider Internal Medicine
DX: M79.672 Pain in left foot (principal); M79.671 Pain in right foot; M54.16 Radiculopathy, lumbar region; E16.2 Hypoglycemia, unspecified; R53.83 Other fatigue
CPT/HCPCS: 36415; 72100; 80053; 82306; 82607; 83036; 84443; 85025

== ENCOUNTER 2022-05-13 15:00 | Outpatient (RCR) | payer OTHER, MEDICAID, SELFPAY ==
[2022-04-21 07:05] VITALS: BP 106/67; PULSE 69; O2SAT 98
--- NOTE | 2022-04-21 08:35 | MHC.PT.EP ---
[facility] [place] Office [place] Office [place] Office [address] Dia Zuniga [address] [phone] F: [phone] F: [phone] F: [phone] F: [phone] Physical Therapy Plan of Care Date of Evaluation: Date of Surgery: Diagnosis: right hip, psoas tendinitis Assessment: 42 YO FEMALE REF TO PT W Rt PSOAS/ HIP PAIN x 2 MONTHS-> SHE NOTES INITIAL ONSET 4 YRS AGO, INSIDIOUS ONSET PER Pt, AND HAD PRIOR PT W RESOLUTION OF SXS. 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 SHE HAS A H/O 4 VAGINAL BIRTHS AND CURRENTLY DENIES RADICULAR SXS OR BOWEL/BLADDER SIGNS/SXS. OBJECTIVE FINDINGS: DECR POSTURAL AWARENESS, (+) PELVIC ASYMMETRY, DECR HIP FLEXIB Rt, (+) LUMBOPELVIC/ PROX LEs WEAKNESS, (+) SOFT TISSUE IRRIT Rt HIP FLEXORS, AND PAIN Rt ASIS/ Rt YUNIEL/ Rt GROIN. FUNCTIONALLY, Pt NOTES DIFFIC WITH STAIR MGMT, PROLONGED AMBULATION, RUNNING/ MORE INTENSE EXER, HEAVY LIFTING, AND PROLONGED STANDING. Pt WOULD BENEFIT FROM PT TO ADDRESS THE ABOVE FINDINGS AND DEV A HEP/ SELF-SX MGMT PROGRAM TO ENABLE HER TO RESUME REG ADLs/ WORK TASKS. Frequency and Duration: The patient will be seen 2 x WK x 5 WKS Short Term Goals: *Pt'S RIGHT PROX LE PAIN DECR TO 2-10/10 *Pt INCREASE Rt HIP FLEXIBILITY AND TRUNK AROM *INCR FLEXIB IN PSOAS/ CALF MM TO IMPROVE EFFICIENCY OF GAIT ON LEVEL GROUND AND Pt DEMON STAIR MGMT W/O PAIN OR Rt GROIN SXS LIMITING HER Death Clearance Coordinator Goals: Pt INDEP W HEP PROGRESSION AND SELF-SX MGMT STRATEGIES IN 5 WKS Pt RESUME REG ADLs EVIDENT W IMPROVED LEFI SCORE BY 8-10 POINTS (AT EVAL 45/80 ) IN 5 WKS Pt INCR LE STRENGTH BY 1 GRADE IN 5 WKS Treatment Plan: Modalities to reduce pain, spasms and effusion. Manual therapy to restore motion and function. Therapeutic exercise to improve strength and flexibility. Neuromuscular re-education for posture and balance. Therapeutic activities to return to functional activities of daily living. Electronically signed by: Ainsley Muñoz PT Please sign and return to therapist. Thank you for your referral.
--- NOTE | 2022-07-01 09:57 | MHC.PT.DC ---
[facility] [place] [facility] [place] Office [place] Office [address] Dia Zuniga [address] [phone] F: [phone] F: [phone] F: [phone] F: [phone] Physical Therapy Discharge Report Diagnosis: right hip, psoas tendinitis Date of Surgery: Date of Evaluation: 04/21/22 Date of Discharge: Treatments to Date: 6 Cancellations to Date: 2 No Shows to Date: 1 Discharge Status: Improved Function Independent with HEP Patient Elected to Stop Discharge Summary: THE Pt HAD BEEN PROGRESSING WITH PT INTERVENTION- HER PAIN WAS RESOLVING AND HER GLUTE/ PROX LEs STRENGTH/ LUMBAR STAB WAS IMPROVING. WE ALSO ADDRESSED HER POSTURE AND BODY MECH. Pt HAS A THOROUGH AND PROGRESSIVE HEP. SHE DID NOT ATTEND HER LAST FEW PT APPTS AND THEREFORE, A FORMAL RE-ASSESSMENT WAS NOT PERFORMED. Electronically signed by: LUCIANO PLAZA,PT Please sign and return to therapist. Thank you for your referral.
== END 2022-07-01 09:57 | disposition home or self-care (01) ==
LOC: HO.PT 15:00
PROVIDERS: PCP Internal Medicine; Visit Provider Internal Medicine
DX: M76.11 Psoas tendinitis, right hip (principal)
CPT/HCPCS: 97110; 97140; 97162

== ENCOUNTER 2022-06-11 13:40 | Outpatient (REF) | payer OTHER, MEDICAID, SELFPAY ==
[2022-06-13 03:16] LABS: Follicle Stimulating Hormone 36.7 mIU/mL
== END 2022-06-11 13:41 | disposition home or self-care (01) ==
LOC: HO.LAB 13:40
PROVIDERS: PCP Internal Medicine; Visit Provider Advanced Practice Midwife
DX: R23.2 Flushing (principal)
CPT/HCPCS: 36415; 83001

== ENCOUNTER → 2022-08-18 07:51 | Outpatient (BNVA) | payer OTHER, MEDICAID, SELFPAY | PROVIDERS: Visit Provider Advanced Practice Midwife | DX: Z01.419 Encounter for gynecological examination (general) (routine) without abnormal findings (principal) ==

== ENCOUNTER 2022-09-12 07:51 | Outpatient (REF) | payer OTHER, MEDICAID, SELFPAY ==
--- NOTE | ~2022-09-12 | MM_ITS ---
EXAMINATION: MM SCREENING DIGITAL BREAST TOMOSYNTHESIS, BILATERAL CLINICAL INFORMATION: Screening. Asymptomatic. The lifetime risk of breast cancer based on the Tyrer-Cuzick Model is 12%. COMPARISON: Mammography: 08/20/2020 (baseline) TECHNIQUE: Digital breast tomosynthesis is performed in both the craniocaudal and mediolateral oblique views along with computer-aided detection (CAD). Synthesized 2D images are generated from the tomosynthesis. FINDINGS: There are scattered areas of fibroglandular density (ACR BI-RADS breast composition Category b). There are no significant masses, abnormal calcifications, or other abnormalities. No significant change from baseline exam. No architectural abnormality. The axilla and skin contours are unremarkable. MM/MM tomosynthesis screening BI IMPRESSION: No mammographic evidence of malignancy. ASSESSMENT: BI-RADS 1: Negative RECOMMENDATION: Routine annual mammography screening. This patient's information was entered into a reminder system with a target due date for their next mammogram.
== END 2022-09-12 07:52 | disposition home or self-care (01) ==
LOC: HO.MAMMO 07:51
PROVIDERS: Visit Provider Advanced Practice Midwife
DX: Z12.31 Encounter for screening mammogram for malignant neoplasm of breast (principal)
CPT/HCPCS: 77063; 77067

== ENCOUNTER 2022-09-19 14:49 | Outpatient (REF) | payer OTHER, MEDICAID, SELFPAY ==
--- NOTE | ~2022-09-19 | US_ITS ---
EXAMINATION: US PELVIS CLINICAL INFORMATION: Oligomenorrhea. LMP January 2022. COMPARISON: Pelvic ultrasound 08/21/2020. TECHNIQUE: Ultrasound of the pelvis is performed using both transabdominal and transvaginal transducers along with Doppler. Transvaginal imaging is performed due to inadequate visualization transabdominally. FINDINGS: The uterus is anteverted and anteflexed measuring 11.9 x 4 x 6 cm. No focal uterine lesion noted. Nonspecific enlarged/tortuous intramural vessels. The endometrium measures 14 mm in thickness with small amount of anechoic fluid. The ovaries are symmetric in size with preserved flow at the moment of this examination. The right ovary measures 3.6 x 2.4 x 3 cm, 13.6 mL and the left ovary measures 4.1 x 2.5 x 3.2 cm, 17.2 mL. There is preserved flow to both ovaries at the moment of this examination. There are multiple simple appearing functional follicles in both ovaries, for which no imaging follow-up is recommended. No significant free fluid. US/US pelvic and transvaginal IMPRESSION: The endometrium measures 14 mm in thickness with a small volume of free fluid. This is considered within normal limits for a premenopausal patient, correlate with certainty of the menstrual history. Nonspecific engorged uterine vessels which could be physiologic.
== END 2022-09-19 14:50 | disposition home or self-care (01) ==
LOC: HO.US 14:49
PROVIDERS: Visit Provider Advanced Practice Midwife
DX: N91.5 Oligomenorrhea, unspecified (principal)
CPT/HCPCS: 76830; 76856

== ENCOUNTER → 2022-09-25 07:55 | Outpatient (BNVA) | payer OTHER, MEDICAID, SELFPAY | PROVIDERS: Visit Provider Advanced Practice Midwife | DX: Z13.89 Encounter for screening for other disorder (principal) ==

== ENCOUNTER 2022-12-11 09:19 | Outpatient (REF) | payer OTHER, MEDICAID, SELFPAY ==
--- NOTE | ~2022-12-11 | XR_ITS ---
X-RAY LUMBAR SPINE X-RAY SACRUM/COCCYX CLINICAL HISTORY: Radiculopathy. COMPARISON: X-ray lumbar spine 02/19/2022. TECHNIQUE: 3 views of the lumbar spine. 3 views of the sacrum/coccyx. FINDINGS: Lumbar spine: No evidence of acute compression deformity or traumatic subluxation. Mild intervertebral disc height loss and facet arthropathy at L5-S1 with some degree of neural foraminal encroachment. SI joints are symmetric. Surgical clips are noted projecting over the left hemiabdomen. Nonobstructive bowel gas pattern. Sacrum/coccyx: No displaced fractures. SI joints are symmetric. Pubic symphysis is maintained. Multiple small pelvic phleboliths are seen. XR/XR lumbar spine 2-3V IMPRESSION: 1. No acute compression deformity or traumatic subluxation. 2. Mild degenerative changes at L5-S1. If indicated, correlation with an MR of the lumbar spine could be obtained.
--- NOTE | ~2022-12-11 | XR_ITS ---
X-RAY LUMBAR SPINE X-RAY SACRUM/COCCYX CLINICAL HISTORY: Radiculopathy. COMPARISON: X-ray lumbar spine 02/19/2022. TECHNIQUE: 3 views of the lumbar spine. 3 views of the sacrum/coccyx. FINDINGS: Lumbar spine: No evidence of acute compression deformity or traumatic subluxation. Mild intervertebral disc height loss and facet arthropathy at L5-S1 with some degree of neural foraminal encroachment. SI joints are symmetric. Surgical clips are noted projecting over the left hemiabdomen. Nonobstructive bowel gas pattern. Sacrum/coccyx: No displaced fractures. SI joints are symmetric. Pubic symphysis is maintained. Multiple small pelvic phleboliths are seen. XR/XR sacrum coccyx min 2V IMPRESSION: 1. No acute compression deformity or traumatic subluxation. 2. Mild degenerative changes at L5-S1. If indicated, correlation with an MR of the lumbar spine could be obtained.
== END 2022-12-11 09:20 | disposition home or self-care (01) ==
LOC: HO.HMGCX 09:19
PROVIDERS: PCP Internal Medicine; Visit Provider Internal Medicine
DX: M54.16 Radiculopathy, lumbar region (principal); M53.3 Sacrococcygeal disorders, not elsewhere classified
CPT/HCPCS: 72100; 72220

== ENCOUNTER 2023-03-17 08:50 | Outpatient (REF) | payer OTHER, MEDICAID, SELFPAY ==
--- NOTE | ~2023-03-17 | MR_ITS ---
MR LUMBAR SPINE WITHOUT CONTRAST CLINICAL INFORMATION: Lumbar region radiculopathy. COMPARISON: Lumbar spine radiographs December 11, 2022. Lumbar spine MRI May 25, 2014. TECHNIQUE: MRI of the lumbar spine was obtained using routine sequences without contrast. FINDINGS: There are 5 nonrib-bearing lumbar-type vertebral bodies. There are hypoplastic ribs at the lowermost thoracic type segment. Lumbar alignment is maintained. Vertebral body heights are preserved. Modic type I endplate signal changes on the left side at T12-L1 and anteriorly at L2-L3. No additional bone marrow edema. No acute fractures. Conus terminates at the T12-L1 level. Extrarenal pelvises bilaterally. Partially imaged 2.5 cm right adnexal cyst. Findings are overwhelmingly likely to represent a normal ovarian follicle. No followup imaging recommended. L1-L2: Disc contour is normal. There is no central canal stenosis and there is no foraminal stenosis. L2-L3: New small annular disc bulge and mild bilateral facet arthropathy. No central canal stenosis and no foraminal stenosis. L3-L4: Diffuse annular disc bulge the superimposed shallow central disc protrusion associated with an annular fissure that continues to mildly narrow the central canal, unchanged in comparison to the prior study. Disc osteophyte and facet arthropathy result in mild bilateral foraminal encroachment which is unchanged. L4-L5: Progressive shallow left paracentral disc protrusion associated with an annular fissure resulting in mass effect on the traversing left L5 nerve root within the left subarticular zone. Background annular disc bulge and moderate bilateral facet arthropathy. There is mild foraminal encroachment bilaterally. L5-S1: Diffuse annular disc bulge and mild bilateral facet arthropathy. There is no central canal stenosis. A far left lateral disc osteophyte protrusion likely mildly contacts the extraforaminal left L5 nerve root which is unchanged. MR/MR lumbar spine wo con IMPRESSION: - At L5-S1, a far left lateral disc osteophyte protrusion likely mildly contacts the extraforaminal left L5 nerve root which is unchanged. - At L4-L5, there is a progressive shallow left paracentral disc protrusion associated with an annular fissure resulting in mass effect on the traversing left L5 nerve root within the left subarticular zone. - At L3-L4, a shallow central disc protrusion associated with an annular fissure continues to mildly narrow the central canal. - Modic type I endplate signal changes on the left side at T12-L1 and anteriorly at L2-L3.
== END 2023-03-17 08:51 | disposition home or self-care (01) ==
LOC: HO.MRI 08:50
PROVIDERS: PCP Internal Medicine; Visit Provider Psychiatry & Neurology Neurology
DX: M54.16 Radiculopathy, lumbar region (principal)
CPT/HCPCS: 72148

== ENCOUNTER 2023-05-06 09:18 | Outpatient (AMB) | payer OTHER, SELFPAY ==
--- NOTE | 2023-05-06 09:54 | HO.SPINEOV ---
Intake Intake Visit Reasons: radiculopathy Intake Note: Ms. Palacios is here today c/o low back pain into right hip and upper thigh. [place] [facility] [place] [employer] Service [employer] Helper Required: No Allergies latex Allergy (Verified 01/27/23 13:14) Rash Assessment & Plan Assessment & Plan (1) Sacral pain: Code(s): M53.3 - Sacrococcygeal disorders, not elsewhere classified (2) SI (sacroiliac) joint dysfunction: Code(s): M53.3 - Sacrococcygeal disorders, not elsewhere classified Plan Dear colleague Thank you for referring Alona Palacios to the office today with a chief complaint of right hip pain. HPI: This 43-year-old female developed pain in the right hip area approximately 1 year ago. It started with pain on the medial side of her thigh but now it is more around the SI joint area and buttock. The pain can radiate down to her calf. Sitting for prolonged periods time increases the pain. She had to stop twice during a recent car ride to [place]. Sleeping is painful. Standing or walking increases the pain. She has bilateral foot numbness and was diagnosed with polyneuropathy. PMH: Pulmonary embolism, bypass surgery Medications: Acetaminophen, ferrous sulfate famotidine Eliquis Allergies: Latex Social history: , 4 children. Works 2 full-time jobs. Physical Exam: Pleasant female. If pain on palpation over the iachiadic notch. Roger test produces mild pain on the right side. Straight leg raise negative. No motor deficits. Sensory deficits bilaterally up to the ankle. Radiological Studies: MRI done at [facility] shows mild degenerative disc disease L3-4 L4-5 and L5-S1 without spinal stenosis or nerve root compression Impression/Plan: This patient is suffering from pain in the right hip/SI joint area. An MRI of the his lumbar spine shows no surgical pathology. I would like to refer her to Pain Management for a right SI joint injection. Thank you for allowing me to participate in your patients care. total time spent was 50 minutes in counseling ,coordination of plan, personal review of imaging, surgical decision making and subsequent plan Levon Perdue MD, PhD Spine Fellowship Trained Neurosurgeon Director, [facility] Orders: Referrals Pain Management Referral M53.3 - Sacrococcygeal disorders, not elsewhere classified Coding Level of Care Code New Pt Level 4 (60871) Diagnoses Sacral pain M53.3 SI (sacroiliac) joint dysfunction M53.3
== END 2023-05-06 10:38 | disposition home or self-care (01) ==
PROVIDERS: PCP Internal Medicine; Referring Provider Internal Medicine; Visit Provider Neurological Surgery
DX: M53.3 Sacrococcygeal disorders, not elsewhere classified (principal)
CPT/HCPCS: 99204

== ENCOUNTER → 2023-05-06 09:18 | Outpatient (BNVA) | payer OTHER, MEDICAID, SELFPAY | PROVIDERS: PCP Internal Medicine; Visit Provider Neurological Surgery ==

== ENCOUNTER 2023-05-14 07:56 | Outpatient (AMB) | payer OTHER, SELFPAY ==
[2023-05-14 08:16] VITALS: BP 112/70; PULSE 68; RESP 18; O2SAT 99; BMI 28.5
--- NOTE | 2023-05-14 08:16 | MHC.OFFVIS ---
Intake Vital Signs 05/14/23 08:16 Height 5 ft 5 in Weight 171 lb 8 oz BMI 28.5 BP 112/70 Blood Pressure Location Lt brachial Position Sitting Respiration 18 Pulse 68 Pulse Source Pulse Oximeter Pulse Oximetry (%) 99 Oxygen Delivery Method Room Air Intake Visit Reasons: Right SI joint injection/ CONFIRMED Allergies latex Allergy (Verified 05/14/23 08:10) Rash HPI HPI Comments History of Present Illness Details Alona is very pleasant 43 years old female who presents in my office with complains on pain in the projection of the buttock with minimal radiation to the right hip she reported that this pain started few years ago. She tried physical therapy and NSAIDs to treat this pain without any success. She was referred by primary care physician to Dr. Perdue for neurosurgical evaluation however Dr. Perdue did not find any indications to perform neuro surgery. She received MRI of the lumbar spine which is indicative of Modic type 2 changes at L2-L3 level which is dictated in the note of the radiologist, however after evaluation of the MRI I think Modic 1 type changes positive in L5-S1 level as well. We would need confirmation from radiologist on the changes. Dr. Bangura so recommended diagnostic right sacroiliac joint injection to figure out this patient's pain generator. She reports her pain 6/10 to 10/10. She reports difficulty with prolong sitting and pain increase with flexing forward. 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 She reports that to 1 of her work sites will be close soon and she will be working less hours a week. She relatively healthy individual however she had pulmonary embolism 2 years ago and she is started on Eliquis. She reports today that she does not take Eliquis on regular basis. She reports that she can not stop Eliquis 4 days before the procedure. She reports that she started smoking 2 months ago after 8 years of nonsmoking interval. she denies drinking alcohol she denies recreational drugs. [facility]LY [facility] Medical History Anemia Eczema Pulmonary embolism Thyroid nodule Ulnar neuropathy Surgical History H/O toe surgery Hx of tubal ligation Family History Father Heart disease Hyperlipidemia Mother Diabetes mellitus Hyperlipidemia Maternal Aunt History of breast cancer Social History Household Members: Spouse and Children Housing: House Are you a primary adult daycare coordinator to a significant other at home: No Do you presently have visiting nurse or other home services: No Alcohol intake: never Patient Tobacco Use Status: Current everyday Tobacco user Years Smoked: 17 yrs e-Cigarette/Vaping Use: Never Used Second Hand Smoke Exposure: Yes service: No Current occupational status: employed 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 Sexual orientation: Straight/Heterosexual Cognitive needs: No Hearing needs: No Vision needs: No Review of Systems Const All systems reviewed & are unremarkable except as noted in HPI and below Eyes Reports no additional complaints ENT Reports Normal hearing present Card Reports as per HPI and Reports no additional complaints Resp Reports no additional complaints Musc Reports as per HPI Neuro Reports Normal hearing present, Denies Abnormal speech present, Denies confusion and Denies Sensory deficit (Neuro) Psych Denies confusion Physical Exam Vital Signs: Last Vital Signs Pulse 68 05/14/23 08:16 Resp 18 05/14/23 08:16 BP 112/70 05/14/23 08:16 Pulse Ox 99 05/14/23 08:16 Oxygen Delivery Method Room Air 05/14/23 08:16 BMI result Body Mass Index 28.5 Const General: no acute distress; No confusion Orientation/consciousness: patient oriented x3 and No confusion Eyes General: appearance normal, both eyes and all related structures Pupils: Equal, round and reactive pupils present EOM: EOMs intact bilaterally Neck Neck: Yes full ROM Chest Chest palpation & inspection: normal inspection of the chest Resp Effort & Inspection: normal respiratory effort, able to speak in complete sentences, normal respiratory pattern, no audible wheezes and no cough Cardio Jugular venous distension: no JVD GI Inspection: Yes normal to inspection Back/Spine/Pelvis Other: No tenderness on palpation on the left sacroiliac joint projection but severe tenderness on palpation in projection of the right sacroiliac joint. She also reports increase pain with Mikel test, pelvic compression test and tie thrust test. All those tests are positive on the right and negative on the left. Neuro General: patient oriented x3, gait normal and No confusion Cranial nerves: Yes CN's II-XII intact bilaterally, Yes Equal, round and reactive pupils present, Yes Normal hearing present and Yes Ability to bilaterally elevate shoulders present Speech: No Abnormal speech present Gait exam (Neuro): Normal gait present Motor exam (neuro): 5/5 motor strength present throughout Sensory Exam: No Sensory deficit (Neuro) Extrem General: No pedal edema Psych Speech and movement: Normal speech and movement present Affect: normal affect Attitude: cooperative Thought process: Normal thought process present Thought content: Normal thought content present Insight: Good insight present (Psych) Judgement: Good judgement present (Psych) Assessment & Plan Assessment & Plan (1) SI (sacroiliac) joint dysfunction: Code(s): M53.3 - Sacrococcygeal disorders, not elsewhere classified (2) Sacroiliitis: Code(s): M46.1 - Sacroiliitis, not elsewhere classified (3) Chronic right sacroiliac joint pain: Code(s): M53.3 - Sacrococcygeal disorders, not elsewhere classified; G89.29 - Other chronic pain (4) Vertebrogenic low back pain: Code(s): M54.51 - Vertebrogenic low back pain Plan This patient is very pleasant 43 years old female who is referred to this office with the intention to diagnose or rule out right sacroiliitis. I offered her sacroiliac joint injection she agreed to go for the procedure. However history of prolong sitting and MRI changes at L2-L3 of Modic type changes of type 2 diagnosed by the radiologist ( as well as type 1 changes on L5-S1 area which I think a present on her MRI make me think about vertebra genic pain generators. If her sacroiliac joint diagnostic injection on the right will not be helping her pain, I will consider re-evaluation of this patient's MRI by radiologist with closer attention to L5-S1 area with possible Modic type changes. Intrasept procedure possible after this. Coding Level of Care Code New Pt Level 3 (77739) Diagnoses SI (sacroiliac) joint dysfunction M53.3 Sacroiliitis M46.1 Chronic right sacroiliac joint pain M53.3; G89.29 Vertebrogenic low back pain M54.51
== END 2023-05-14 09:01 | disposition home or self-care (01) ==
PROVIDERS: PCP Internal Medicine; Visit Provider Registered Nurse Emergency
DX: M53.3 Sacrococcygeal disorders, not elsewhere classified (principal); M46.1 Sacroiliitis, not elsewhere classified; G89.29 Other chronic pain; M54.51 Vertebrogenic low back pain
CPT/HCPCS: 99203

== ENCOUNTER → 2023-05-14 07:56 | Outpatient (BNVA) | payer OTHER, SELFPAY | PROVIDERS: PCP Internal Medicine; Visit Provider Registered Nurse Emergency ==

== ENCOUNTER 2023-06-09 06:01 | Outpatient (REF) | payer OTHER, SELFPAY ==
--- NOTE | ~2023-06-09 | FL_ITS ---
EXAMINATION: XR FLUOROSCOPY WITH IMAGES CLINICAL INFORMATION: Sacrococcygeal disorders, not elsewhere classified. COMPARISON: None available. TECHNIQUE: Fluoroscopy Supervised By: Dr. Ryan Sanchez. Fluoroscopy Time: 0.1 minute. Cumulative Dose: 2.3 mGy. DAP: 0.0303 Gycm2. Images: 1. FINDINGS: Image demonstrates needle placement and contrast injection over the right sacroiliac joint FL/FL guidance in treatment room IMPRESSION: Fluoroscopy guidance for pain management procedure
== END 2023-06-09 06:02 | disposition home or self-care (01) ==
LOC: CF 06:01
PROVIDERS: Visit Provider Anesthesiology
DX: M53.3 Sacrococcygeal disorders, not elsewhere classified (principal); M46.1 Sacroiliitis, not elsewhere classified; M54.51 Vertebrogenic low back pain
CPT/HCPCS: 27096; J2795; Q9967

== ENCOUNTER 2023-06-09 07:29 | Outpatient (AMB) | payer OTHER, SELFPAY ==
[2023-06-09 07:37] VITALS: BP 128/68; PULSE 82; RESP 16; O2SAT 99; BMI 28.3
--- NOTE | 2023-06-09 07:37 | A.OFFVIS_ITS ---
Intake Vital Signs 06/09/23 07:37 06/09/23 08:55 Height 5 ft 5 in 5 ft 5 in Weight 170 lb 170 lb BMI 28.3 28.3 BP 128/68 128/62 Blood Pressure Location Lt brachial Lt brachial Position Sitting Sitting Respiration 16 16 Pulse 82 67 Pulse Source Pulse Oximeter Pulse Oximeter Pulse Oximetry (%) 99 97 Oxygen Delivery Method Room Air Room Air Comment pre-op post-op Intake Visit Reasons: R DX SIJ INJ/LOCAL Allergies latex Allergy (Verified 06/09/23 08:56) Rash PFSH Medical History Anemia Eczema Pulmonary embolism Thyroid nodule Ulnar neuropathy Surgical History H/O toe surgery Hx of tubal ligation Family History Father Heart disease Hyperlipidemia Mother Diabetes mellitus Hyperlipidemia Maternal Aunt History of breast cancer Social History Household Members: Spouse and Children Housing: House Are you a primary spiritual care coordinator to a significant other at home: No Do you presently have visiting nurse or other home services: No Alcohol intake: never Patient Tobacco Use Status: Current everyday Tobacco user Years Smoked: 17 yrs e-Cigarette/Vaping Use: Never Used Second Hand Smoke Exposure: Yes service: No Current occupational status: employed 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 Sexual orientation: Straight/Heterosexual Cognitive needs: No Hearing needs: No Vision needs: No Physical Exam Vital Signs: Last Vital Signs Pulse 67 06/09/23 08:55 Resp 16 06/09/23 08:55 BP 128/62 06/09/23 08:55 Pulse Ox 97 06/09/23 08:55 Oxygen Delivery Method Room Air 06/09/23 08:55 BMI result Body Mass Index 28.3 Assessment & Plan Assessment & Plan (1) SI (sacroiliac) joint dysfunction: Code(s): M53.3 - Sacrococcygeal disorders, not elsewhere classified (2) Sacroiliitis: Code(s): M46.1 - Sacroiliitis, not elsewhere classified (3) Chronic right sacroiliac joint pain: Code(s): M53.3 - Sacrococcygeal disorders, not elsewhere classified; G89.29 - Other chronic pain Plan: Bilateral sacroiliac joint injection Informed consent was explained thoroughly to the patient.? All questions about benefits and risks for the procedure were answered. Patient came to the operating room and was positioned prone on the operating table with the pillow under her pelvis. ?[place] [employer] monitors were applied and patient was sedated. ? Time out was performed delineating name and of the patient, site and side of the procedure, nature of the procedure and potential patient?s risks. The lower back of the patient and upper buttocks was prepped with ChloraPrep prepped and draped with sterile utility drapes.? C-arm was brought over the operating field and square picture of patient's pelvis was demonstrated on the screen.? For the right and left joint tilting C-arm contralateral to the site of the joint the posterior joint silhouette was delineated on the screen. Skin projection of the joint was chosen as a target of the injection and it was injected ?slightly medial to the location of the joint with 25 gauge needle using local lidocaine 2% without epinephrine. After that 22 gauge 3 and 1/2 inch needle was driven to the joint silhouette in tunnel vision fashion.? When needle entered the joint capsule injection of the contrast was performed demonstrating intra-articular spread of the contrast.? After that 4 cc. of ropivacaine 0.5% was injected into the joint. Upon completion of the injections the needle was removed and sterile dressing was applied.? Upon completion of the injection patient was awaken taken outside of the operating room to the recovery room where recovered uneventfully.? (4) Vertebrogenic low back pain: Code(s): M54.51 - Vertebrogenic low back pain Plan This patient is very pleasant 43 years old female who is referred to this office with the intention to diagnose or rule out right sacroiliitis. I offered her sacroiliac joint injection she agreed to go for the procedure. However history of prolong sitting and MRI changes at L2-L3 of Modic type changes of type 2 diagnosed by the radiologist ( as well as type 1 changes on L5-S1 area which I think a present on her MRI make me think about vertebra genic pain generators. If her sacroiliac joint diagnostic injection on the right will not be helping her pain, I will consider re-evaluation of this patient's MRI by radiologist with closer attention to L5-S1 area with possible Modic type changes. Intrasept procedure possible after this. Orders: Orders FL guidance in treatment room 06/09/23 G89.29 - Other chronic pain, M53.3 - Sacrococcygeal disorders, not elsewhere classified Coding Level of Care Code Procedure Only Diagnoses SI (sacroiliac) joint dysfunction M53.3 Sacroiliitis M46.1 Chronic right sacroiliac joint pain M53.3; G89.29 Vertebrogenic low back pain M54.51
[2023-06-09 08:55] VITALS: BP 128/62; PULSE 67; RESP 16; O2SAT 97; BMI 28.3
== END 2023-06-09 08:17 | disposition home or self-care (01) ==
LOC: HO.PMCPRC 07:29
PROVIDERS: PCP Internal Medicine; Visit Provider Anesthesiology
DX: M53.3 Sacrococcygeal disorders, not elsewhere classified (principal); M46.1 Sacroiliitis, not elsewhere classified; G89.29 Other chronic pain; M54.51 Vertebrogenic low back pain
CPT/HCPCS: 27096

== ENCOUNTER 2023-06-11 08:31 | Outpatient (AMB) | payer OTHER, SELFPAY ==
--- NOTE | 2023-06-11 08:33 | MHC.OFFVIS ---
Intake Vital Signs 06/11/23 08:42 Height 5 ft 5 in Weight 174 lb BMI 29.0 BP 120/74 Blood Pressure Location Rt brachial Position Sitting Respiration 16 Pulse 66 Pulse Source Pulse Oximeter Pulse Oximetry (%) 99 Oxygen Delivery Method Room Air Intake Visit Reasons: R DX SIJ INJ 06/09/23/LVM Allergies latex Allergy (Verified 06/12/23 11:59) Rash HPI HPI Comments History of Present Illness Details Alona is back in my office after the diagnostic right sacroiliac joint injection. The patient unfortunately did not report before the injection that the level of pain is zero. She reported today that after the injection her pain was also zero for the first two hours after the procedure. However on the third hour her pain in the buttock became 4/10. In 4 hours her pain became 6/10 and in 5 hours her pain was 7/10. The pattern of her pain change does not correspond to the time of local anesthetic ropivacaine with 5-6 hours intervale of pain pain relieve on the injection. The results of the injection are not indicative of the right SI joint pathology. We decided to try again PT to treat her pain. I also offered her to try tizanidine 2 mg TID to help her pain. Prior: C/o pain in the projection of the buttock with minimal radiation to the right hip she reported that this pain started few years ago. She tried physical therapy and NSAIDs to treat this pain without any success. She was referred by primary care physician to Dr. Perdue for neurosurgical evaluation however Dr. Perdue did not find any indications to perform neuro surgery. She received MRI of the lumbar spine which is indicative of Modic type 2 changes at L2-L3 level which is dictated in the note of the radiologist, however after evaluation of the MRI I think Modic 1 type changes positive in L5-S1 level as well. We would need confirmation from radiologist on the changes. Dr. Perdue recommended diagnostic right sacroiliac joint injection to figure out this patient's pain generator. She reports her pain 6/10 to 10/10. She reports difficulty with prolong sitting and pain increase with flexing forward. 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 She reports that to 1 of her work sites will be close soon and she will be working less hours a week. She relatively healthy individual however she had pulmonary embolism 2 years ago and she is started on Eliquis. She reports today that she does not take Eliquis on regular basis. She reports that she can stop Eliquis 4 days before the procedure. She reports that she started smoking 2 months ago after 8 years of nonsmoking interval. she denies drinking alcohol she denies recreational drugs. [facility] Medical History Pulmonary embolism Eczema Anemia Ulnar neuropathy Thyroid nodule Surgical History H/O toe surgery Hx of tubal ligation Family History Father Heart disease Hyperlipidemia Mother Diabetes mellitus Hyperlipidemia Maternal Aunt History of breast cancer Social History Household Members: Spouse and Children Housing: House Are you a primary manager critical care to a significant other at home: No Do you presently have visiting nurse or other home services: No Alcohol intake: never Patient Tobacco Use Status: Current everyday Tobacco user Years Smoked: 17 yrs e-Cigarette/Vaping Use: Never Used Second Hand Smoke Exposure: Yes service: No Current occupational status: employed 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 Sexual orientation: Straight/Heterosexual Cognitive needs: No Hearing needs: No Vision needs: No Review of Systems Const All systems reviewed & are unremarkable except as noted in HPI and below ENT Reports Normal hearing present Neuro Reports Normal hearing present, Denies Abnormal speech present, Denies confusion and Denies Sensory deficit (Neuro) Psych Denies confusion Physical Exam Vital Signs: Last Vital Signs Pulse 66 06/11/23 08:42 Resp 16 06/11/23 08:42 BP 120/74 06/11/23 08:42 Pulse Ox 99 06/11/23 08:42 Oxygen Delivery Method Room Air 06/11/23 08:42 BMI result Body Mass Index 29.0 Const General: no acute distress; No confusion Orientation/consciousness: patient oriented x3 and No confusion Eyes General: appearance normal, both eyes and all related structures Pupils: Equal, round and reactive pupils present EOM: EOMs intact bilaterally Neck Neck: Yes full ROM Chest Chest palpation & inspection: normal inspection of the chest Resp Effort & Inspection: normal respiratory effort, able to speak in complete sentences, normal respiratory pattern, no audible wheezes and no cough Cardio Jugular venous distension: no JVD GI Inspection: Yes normal to inspection Back/Spine/Pelvis Other: No tenderness on palpation on the left sacroiliac joint projection but severe tenderness on palpation in projection of the right sacroiliac joint. She also reports increase pain with Mikel test, pelvic compression test and tie thrust test. All those tests are positive on the right and negative on the left. Neuro General: patient oriented x3, gait normal and No confusion Cranial nerves: Yes CN's II-XII intact bilaterally, Yes Equal, round and reactive pupils present, Yes Normal hearing present and Yes Ability to bilaterally elevate shoulders present Speech: No Abnormal speech present Gait exam (Neuro): Normal gait present Motor exam (neuro): 5/5 motor strength present throughout Sensory Exam: No Sensory deficit (Neuro) Extrem General: No pedal edema Psych Speech and movement: Normal speech and movement present Affect: normal affect Attitude: cooperative Thought process: Normal thought process present Thought content: Normal thought content present Insight: Good insight present (Psych) Judgement: Good judgement present (Psych) Assessment & Plan Assessment & Plan (1) SI (sacroiliac) joint dysfunction: Code(s): M53.3 - Sacrococcygeal disorders, not elsewhere classified (2) Sacroiliitis: Code(s): M46.1 - Sacroiliitis, not elsewhere classified (3) Chronic right sacroiliac joint pain: Code(s): M53.3 - Sacrococcygeal disorders, not elsewhere classified; G89.29 - Other chronic pain (4) Vertebrogenic low back pain: Code(s): M54.51 - Vertebrogenic low back pain (5) Sacral pain: Code(s): M53.3 - Sacrococcygeal disorders, not elsewhere classified Plan This patient is very pleasant 43 years old female who is referred to this office with the intention to diagnose or rule out right sacroiliitis.However the right SI joint injection was non conclusive for the right sacroiliitis. At the same time history of prolong sitting and MRI changes at L2-L3 of Modic type changes of type 2 diagnosed by the radiologist ( as well as type 1 changes on L5-S1 area which I think a present on her MRI make me think about vertebrogenic pain generators. We decided to try PT and muscular relaxants today while we take into the consideration L5-S1 area with possible Modic type changes. Intrasept procedure possible after this. Orders: Orders PT Evaluation and Treatment 06/11/23 M46.1 - Sacroiliitis, not elsewhere classified, M53.3 - Sacrococcygeal disorders, not elsewhere classified, M54.51 - Vertebrogenic low back pain Medications: New tizanidine 2 mg PO TID 30 days PRN 90 tabs 1RF muscle spasticity Coding Level of Care Code Est Pt Level 3 (28697) Diagnoses SI (sacroiliac) joint dysfunction M53.3 Sacroiliitis M46.1 Chronic right sacroiliac joint pain M53.3; G89.29 Vertebrogenic low back pain M54.51 Sacral pain M53.3
[2023-06-11 08:42] VITALS: BP 120/74; PULSE 66; RESP 16; O2SAT 99; BMI 29.0
== END 2023-06-11 08:56 | disposition home or self-care (01) ==
PROVIDERS: PCP Internal Medicine; Visit Provider Anesthesiology
DX: M53.3 Sacrococcygeal disorders, not elsewhere classified (principal); M46.1 Sacroiliitis, not elsewhere classified; G89.29 Other chronic pain; M54.51 Vertebrogenic low back pain
CPT/HCPCS: 99213

== ENCOUNTER → 2023-06-11 08:31 | Outpatient (BNVA) | payer OTHER, SELFPAY | PROVIDERS: PCP Internal Medicine; Visit Provider Anesthesiology ==

== ENCOUNTER 2023-06-12 11:55 | Outpatient (AMB) | payer OTHER, SELFPAY ==
--- NOTE | 2023-06-12 11:58 | MHC.PC.OV ---
Vital Signs 06/12/23 11:59 Height 5 ft 5 in Weight 173 lb BMI 28.8 BP 102/70 Blood Pressure Location Rt brachial Position Sitting Pulse 73 Pulse Source Pulse Oximeter Pulse Oximetry (%) 98 Oxygen Delivery Method Room Air Intake Visit Reasons: Back Pain Allergies latex Allergy (Verified 06/12/23 11:59) Rash Medication List - Last Reviewed 06/12/23 by Laurie Schmidt CMA acetaminophen ER (Arthritis Pain Relief (acetaminophen) ER) 650 mg PO Q12H PRN 90 days azelaic acid 15% topical DAILY betamethasone dipropionate 0.05% 0.05 appl topical DIRECTED cholecalciferol (vitamin D3) 25 mcg PO DAILY 90 days epinephrine IM famotidine (Pepcid) 20 mg PO BID 3 days fluocinonide 0.05% topical ketoconazole 2% 2 ea topical DAILY ruxolitinib 1.5% (Opzelura) appl topical tizanidine 2 mg PO TID PRN 30 days Tobacco use date assessed: 06/12/23 Dental Screening Dental Screen Date: 06/12/23 Did you have a dental visit in the last 12 months?: Yes Was dental information given to patient?: Patient has dentist HPI Back Pain HPI Details Patient came in today to talk about her lower back pain MRI lumbar spine dated 03/17/2023 Report is as following At L5-S1, a far left lateral disc osteophyte protrusion likely mildly contacts the extraforaminal left L5 nerve root which is unchanged. - At L4-L5, there is a progressive shallow left paracentral disc protrusion associated with an annular fissure resulting in mass effect on the traversing left L5 nerve root within the left subarticular zone. - At L3-L4, a shallow central disc protrusion associated with an annular fissure continues to mildly narrow the central canal. - Modic type I endplate signal changes on the left side at T12-L1 and anteriorly at L2-L3. Patient has already seen back specialist MRI was ordered through them They told her that her pain which is located more so on the right lumbar right buttock area is because of her hip She was referred to Pain Management , patient ended up having an injection in her right hip by Dr. Apple After the injection her pain got worse so she came in today to talk about it. Patient is very depressed and is tearful today She says that she is feeling worse than before. 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 I am prescribing Percocet for the pain letter given to be off until cleared. She will return in 1 week for follow-up [facility] Medical History Pulmonary embolism Eczema Anemia Ulnar neuropathy Thyroid nodule Surgical History H/O toe surgery Hx of tubal ligation Family History Father Heart disease Hyperlipidemia Mother Diabetes mellitus Hyperlipidemia Maternal Aunt History of breast cancer Social History Household Members: Spouse and Children Housing: House Are you a primary special needs caregiver to a significant other at home: No Do you presently have visiting nurse or other home services: No Alcohol intake: never Patient Tobacco Use Status: Current everyday Tobacco user Years Smoked: 17 yrs e-Cigarette/Vaping Use: Never Used Second Hand Smoke Exposure: Yes service: No Current occupational status: employed 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 1. Little interest or pleasure in doing things: not at all 2. Feeling down, depressed, or hopeless: not at all 3. Trouble falling or staying asleep, or sleeping too much: not at all 4. Feeling tired or having little energy: not at all 5. Poor appetite or overeating: not at all 6. Feeling bad about yourself - or that you are a failure or have let yourself or your family down: not at all 7. Trouble concentrating on things, such as reading the newspaper or watching television: not at all 8. Moving or speaking so slowly that other people could have noticed. Or the opposite - being so fidgety or restless that you have been moving around a lot more than usual: not at all 9. Thoughts that you would be better off or of hurting yourself in some way: not at all Total score: 0 Depression Screening Interpretation: Negative Depression Screening Done: Yes 31737 - PHQ-9 Billing: Yes Source: Developed by Drs. Romeo Miller, Augustine Lyles and colleagues, with an educational jamshid from [employer]. Thrive Questionnaire Date Thrive assessed: 06/12/23 I am a: Patient What is your living situation today?: I have a steady place to live Within the past 12 months, did the food you bought not last and you didn't have the money to get more?: Never true Within the past 12 months, did you worry whether your food would run out before you got money to buy more?: Never true Do you have trouble paying for medicines?: No Do you have trouble getting transportation to medical appointments?: No Do you have trouble paying your heating and electricity bill?: No Do you have trouble taking care of your child, family member or friend?: No Do you have trouble with day-to-day activities such as bathing, preparing meals, shopping, managing finances, etc.?: No Are you currently unemployed and looking for a job?: No Are you interested in more education?: No Please select the resources that you would like help with: None Currently or been in a relationship where the following occur: no concerns reported AUDIT C Alcohol Use Questionnaire (AUDIT-C) 1. How often do you have a drink containing alcohol?: Never Total Score: 0 VANESSA-7 AMB Questionnaire VANESSA-7 Date VANESSA - 7 assessed: 06/12/23 Feeling nervous, anxious, or on edge: 0 = Not at all Not being able to stop or control worryin = Not at all Worrying too much about different things: 0 = Not at all Trouble relaxin = Not at all Being so restless that it is hard to sit still: 0 = Not at all Becoming easily annoyed or irritable: 0 = Not at all Feeling afraid as if something awful might happen: 0 = Not at all Total VANESSA-7 score (0-4 normal; 5-9 mild; 10-14 moderate; 15-21 severe): 0 Source: Developed by Emilee Santiago Kurt Kroenke and colleagues, with an educational jamshid from [employer]. VANESSA-7 Assessment Billing VANESSA-7 Assessment Tool: VANESSA-7 Assessment 03471 Review of Systems Const Denies chills and Denies fever(s) ENT Denies epistaxis and Denies nasal discharge Card Denies chest pain Resp Denies chest congestion, Denies cough and Denies hemoptysis GI Denies diarrhea and Denies nausea Skin/Breast Denies rash Neuro Reports no additional complaints Psych Reports no additional complaints Endo Reports no additional complaints Physical exam (Primary Care) Vital Signs: Last Vital Signs Pulse 73 06/12/23 11:59 BP 102/70 06/12/23 11:59 Pulse Ox 98 06/12/23 11:59 Oxygen Delivery Method Room Air 06/12/23 11:59 BMI result Body Mass Index 28.8 Tobacco/Smoking Status: Tobacco use Status Tobacco use date assessed 06/12/23 06/12/23 12:04 Patient Tobacco Use Status Current everyday Tobacco 06/12/23 12:02 Tobacco use type 05/08/23 15:33 e-Cigarette/Vaping Use Never Used 06/12/23 12:02 PHQ-9: PHQ-9 Score PHQ-9: Total score 0 06/12/23 12:04 Depression Screening Interpretation: Negative Thrive Assessment: Date of Thrive Assessment Date Thrive assessed 06/12/23 06/12/23 12:04 Currently or been in a relationship where the following occur: no concerns reported Const Other: Looks uncomfortable , sitting leaning to left side, tearful General: cooperative Orientation/consciousness: patient oriented x3 HENNM Head: Yes normocephalic Eyes General: appearance normal, both eyes and all related structures Neck Neck: Yes supple Resp Effort & Inspection: normal respiratory effort, no cough and no stridor Cardio Rhythm: regular rhythm Heart sounds: S1 normal heart sound present and S2 normal heart sound present Skin General skin exam: turgor normal Neuro General: patient oriented x3, tone normal and moves all extremities Extrem Right lower extremity: no edema Left lower extremity: no edema Psych Affect: Depressed mood present Thought process: Normal thought process present Assessment and Plan Assessment & Plan (1) Sacroiliitis: Code(s): M46.1 - Sacroiliitis, not elsewhere classified (2) Right lumbar radiculitis: Code(s): M54.16 - Radiculopathy, lumbar region (3) Pain management: Code(s): R52 - Pain, unspecified (4) Depression, major, single episode, mild: Code(s): F32.0 - Major depressive disorder, single episode, mild Plan Patient came in today to talk about her lower back pain MRI lumbar spine dated 03/17/2023 Report is as following At L5-S1, a far left lateral disc osteophyte protrusion likely mildly contacts the extraforaminal left L5 nerve root which is unchanged. - At L4-L5, there is a progressive shallow left paracentral disc protrusion associated with an annular fissure resulting in mass effect on the traversing left L5 nerve root within the left subarticular zone. - At L3-L4, a shallow central disc protrusion associated with an annular fissure continues to mildly narrow the central canal. - Modic type I endplate signal changes on the left side at T12-L1 and anteriorly at L2-L3. Patient has already seen back specialist MRI was ordered through them They told her that her pain which is located more so on the right lumbar right buttock area is because of her hip She was referred to Pain Management , patient ended up having an injection in her right hip by Dr. Apple After the injection her pain got worse so she came in today to talk about it. Patient is very depressed and is tearful today She says that she is feeling worse than before. 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 I am prescribing Percocet for the pain letter given to be off until cleared. She will return in 1 week for follow-up Medications: New oxycodone-acetaminophen 5-325 mg (Percocet) Partial Fill upon patient request. 1 tab PO Q8H 7 days PRN 20 tabs 0RF pain Coding Level of Care Code Est Pt Level 4 (89899) Diagnoses Sacroiliitis M46.1 Right lumbar radiculitis M54.16 Pain management R52 Depression, major, single episode, mild F32.0 Additional Codes VANESSA-7 Assessment Billing - VANESSA-7 Assessment Tool: VANESSA-7 Assessment 38410 ([id number])
[2023-06-12 11:59] VITALS: BP 102/70; PULSE 73; O2SAT 98; BMI 28.8
== END 2023-06-12 13:16 | disposition home or self-care (01) ==
PROVIDERS: PCP Internal Medicine; Visit Provider Internal Medicine
DX: M46.1 Sacroiliitis, not elsewhere classified (principal); M54.16 Radiculopathy, lumbar region; F32.0 Major depressive disorder, single episode, mild
CPT/HCPCS: 99214

== ENCOUNTER 2023-06-17 14:06 | Outpatient (REF) | payer OTHER, SELFPAY ==
--- NOTE | ~2023-06-17 | XR_ITS ---
EXAMINATION: XR BILATERAL HIPS WITH AP PELVIS CLINICAL INFORMATION: Unilateral primary osteoarthritis. COMPARISON: None available. TECHNIQUE: AP view of the pelvis and AP and frog-leg lateral views of each hip were obtained. FINDINGS: Bony alignment and mineralization are normal. The bilateral acetabular joint spaces are symmetric and well-maintained. There is a slight irregularity and subchondral sclerosis of the bilateral acetabular roofs. The femoral heads are smooth. No fracture or dislocation is seen. Small pelvic phleboliths are noted. There are left lower quadrant surgical clips and bowel anastomosis skylar. XR/XR hips BILL min 3V IMPRESSION: There is very mild degenerative change of the hips. No fracture or dislocation is seen.
== END 2023-06-17 14:07 | disposition home or self-care (01) ==
LOC: HO.XRAY 14:06
PROVIDERS: PCP Internal Medicine; Visit Provider Anesthesiology
DX: M16.0 Bilateral primary osteoarthritis of hip (principal)
CPT/HCPCS: 73522

== ENCOUNTER 2023-06-23 08:29 | Outpatient (AMB) | payer OTHER, SELFPAY ==
[2023-06-23 08:49] VITALS: BP 118/70; PULSE 78; TEMP 36.6; O2SAT 97; BMI 29.0
--- NOTE | 2023-06-23 08:49 | AM.OFFWIN_ITS ---
Intake Vital Signs 06/23/23 08:49 Height 5 ft 5 in Weight 174 lb BMI 29.0 BP 118/70 Blood Pressure Location Lt brachial Position Sitting Pulse 78 Pulse Source Pulse Oximeter Temp 97.8 F Temp Source Temporal Artery Scan Pulse Oximetry (%) 97 Intake Visit Reasons: EP eyes blurry red Intake Note: pt is here for c.o blurry eyes red right eye :20/20 left eye : 20/15 both eyes : 20/13 Patient Tobacco Use Status: Current everyday Tobacco user Allergies latex Allergy (Verified 06/23/23 09:13) Rash Medication List - Last Reconciled 06/23/23 by Brandin Ceja MD acetaminophen ER (Arthritis Pain Relief (acetaminophen) ER) 650 mg PO Q12H PRN 90 days azelaic acid 15% topical DAILY betamethasone dipropionate 0.05% 0.05 appl topical DIRECTED cholecalciferol (vitamin D3) 25 mcg PO DAILY 90 days epinephrine IM famotidine (Pepcid) 20 mg PO BID 3 days fluocinonide 0.05% topical ketoconazole 2% 2 ea topical DAILY oxycodone-acetaminophen 5-325 mg (Percocet) 1 tab PO Q8H PRN 7 days ruxolitinib 1.5% (Opzelura) appl topical tizanidine 2 mg PO TID PRN 30 days HPI EP eyes blurry red HPI Details 43-year-old female presents to the [facility] for a sick visit. Patient is complaining of irritation and itching in the eyes. Symptoms started a few days ago. No mucoid discharge from the eye. No vision changes. [facility] Medical History Pulmonary embolism Eczema Anemia Ulnar neuropathy Thyroid nodule Surgical History H/O toe surgery Hx of tubal ligation Family History Father Heart disease Hyperlipidemia Mother Diabetes mellitus Hyperlipidemia Maternal Aunt History of breast cancer Social History Household Members: Spouse and Children Housing: House Are you a primary director of career resources to a significant other at home: No Do you presently have visiting nurse or other home services: No Alcohol intake: never Patient Tobacco Use Status: Current everyday Tobacco user Years Smoked: 17 yrs e-Cigarette/Vaping Use: Never Used Second Hand Smoke Exposure: Yes service: No Current occupational status: employed 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 Minimal and irritation near the medial canthus of the eye Assessment & Plan Assessment & Plan (1) Conjunctivitis: Code(s): H10.9 - Unspecified conjunctivitis Qualifiers: Conjunctivitis type: acute Acute conjunctivitis type: unspecified Laterality: left Qualified Code(s): H10.32 - Unspecified acute conjunctivitis, left eye Plan: Allergic etiology. Zaditor eyedrops provided. Symptoms not better to follow-up here. Coding Level of Care Code Est Pt Level 3 (02061) Diagnoses Acute conjunctivitis of left eye, unspecified acute conjunctivitis type H10.32 Conjunctivitis type: acute Acute conjunctivitis type: unspecified Laterality: left
== END 2023-06-23 09:19 | disposition home or self-care (01) ==
PROVIDERS: PCP Internal Medicine; Visit Provider Internal Medicine
DX: H10.32 Unspecified acute conjunctivitis, left eye (principal)
CPT/HCPCS: 99213

== ENCOUNTER 2023-06-24 11:09 | Outpatient (AMB) | payer OTHER, SELFPAY ==
[2023-06-24 10:54] VITALS: BP 108/70; PULSE 74; O2SAT 100; BMI 28.8
--- NOTE | 2023-06-24 10:54 | MHC.PC.OV ---
Vital Signs 06/24/23 10:54 Height 5 ft 5 in Weight 173 lb 2 oz BMI 28.8 BP 108/70 Blood Pressure Location Rt brachial Position Sitting Pulse 74 Pulse Source Pulse Oximeter Pulse Oximetry (%) 100 Oxygen Delivery Method Room Air Intake Visit Reasons: FMLA Forms~ Allergies latex Allergy (Verified 06/24/23 11:18) Rash Medication List - Last Reconciled 06/24/23 by Cydney Kern MD acetaminophen ER (Arthritis Pain Relief (acetaminophen) ER) 650 mg PO Q12H PRN 90 days azelaic acid 15% topical DAILY betamethasone dipropionate 0.05% 0.05 appl topical DIRECTED cholecalciferol (vitamin D3) 25 mcg PO DAILY 90 days epinephrine IM famotidine (Pepcid) 20 mg PO BID 3 days fluocinonide 0.05% topical ketoconazole 2% 2 ea topical DAILY ketotifen fumarate 0.025%(0.035%) (Zaditor) 1 drp ophthalmic (eye) BID ruxolitinib 1.5% (Opzelura) appl topical tizanidine 2 mg PO TID PRN 30 days Tobacco use date assessed: 06/24/23 Dental Screening Dental Screen Date: 06/24/23 Did you have a dental visit in the last 12 months?: Yes Did you have a dental problem in the last 6 months where you did not have access to dental care?: No Was dental information given to patient?: Patient has dentist HPI FMLA Forms~ HPI Details Patient is a 43-year-old female who has been suffering from back pain hip pain and ingrown toenail She came in today to have FMLA paperwork filled in along with other paperwork for her job Patient has stopped working since June 09 and would like to go back on July 17 She had left toenail surgery June 16 and next 1 will be 06/[address] Ren Ferrari She is also going to pain management for her hip and back pain Paperwork filled, they were extensive number of pages Patient was given time to go over each and every page to see if anything is missed. [facility] Medical History Pulmonary embolism Eczema Anemia Ulnar neuropathy Thyroid nodule Surgical History H/O toe surgery Hx of tubal ligation Family History Father Heart disease Hyperlipidemia Mother Diabetes mellitus Hyperlipidemia Maternal Aunt History of breast cancer Household Members: Spouse and Children Housing: House Are you a primary home health care coordinator to a significant other at home: No Do you presently have visiting nurse or other home services: No Alcohol intake: never Patient Tobacco Use Status: Current everyday Tobacco user Years Smoked: 17 yrs e-Cigarette/Vaping Use: Never Used Second Hand Smoke Exposure: Yes service: No Current occupational status: employed 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 How often do you have a drink containing alcohol?: Never 3. How often do you have six or more drinks on one occasion?: Never Total Score: 0 Score Reviewed/Action Taken: Yes VANESSA-7 AMB Questionnaire VANESSA-7 Date VANESSA - 7 assessed: 06/12/23 Source: Developed by Drs. Romeo Miller, Emilee Chin, Augustine Tate and colleagues, with an educational jamshid from [employer]. Review of Systems Const All systems reviewed & are unremarkable except as noted in HPI and below Physical exam (Primary Care) Vital Signs: Last Vital Signs Pulse 74 06/24/23 10:54 BP 108/70 06/24/23 10:54 Pulse Ox 100 06/24/23 10:54 Oxygen Delivery Method Room Air 06/24/23 10:54 BMI result Body Mass Index 28.8 Tobacco/Smoking Status: Tobacco use Status Tobacco use date assessed 06/24/23 06/24/23 10:56 Patient Tobacco Use Status Current everyday Tobacco 06/24/23 10:56 Tobacco use type 05/08/23 15:33 e-Cigarette/Vaping Use Never Used 06/24/23 10:56 Thrive Assessment: Date of Thrive Assessment Date Thrive assessed 06/12/23 06/24/23 10:56 Const General: no acute distress Orientation/consciousness: patient oriented x3 Eyes General: appearance normal, both eyes and all related structures Resp Effort & Inspection: normal respiratory effort and able to speak in complete sentences Auscultation: clear to auscultation bilaterally Neuro General: patient oriented x3 Psych Mental Status: mental status grossly normal Assessment and Plan Assessment & Plan (1) Sacroiliitis: Code(s): M46.1 - Sacroiliitis, not elsewhere classified (2) Ingrown toenail of both feet: Code(s): L60.0 - Ingrowing nail (3) Bilateral foot pain: Code(s): M79.671 - Pain in right foot; M79.672 - Pain in left foot Plan Patient is a 43-year-old female who has been suffering from back pain hip pain and ingrown toenail She came in today to have [place] paperwork filled in along with other paperwork for her job Patient has stopped working since June 09 and would like to go back on July 17 She had left toenail surgery June 16 and next 1 will be 06/[address] Ren Ferrari She is also going to pain management for her hip and back pain Paperwork filled, they were extensive number of pages Patient was given time to go over each and every page to see if anything is missed. Coding Level of Care Code Est Pt Level 4 (07315) Diagnoses Sacroiliitis M46.1 Ingrown toenail of both feet L60.0 Bilateral foot pain M79.671; M79.672
== END 2023-06-24 13:43 | disposition home or self-care (01) ==
PROVIDERS: PCP Internal Medicine; Visit Provider Internal Medicine
DX: M46.1 Sacroiliitis, not elsewhere classified (principal); L60.0 Ingrowing nail; M79.671 Pain in right foot; M79.672 Pain in left foot
CPT/HCPCS: 99214

== ENCOUNTER 2023-07-03 10:03 | Outpatient (AMB) | payer OTHER, SELFPAY ==
--- NOTE | 2023-07-03 10:12 | MHC.PC.OV ---
Vital Signs 07/03/23 10:13 Height 5 ft 5 in Weight 175 lb 8 oz BMI 29.2 BP 110/74 Blood Pressure Location Rt brachial Position Sitting Pulse 75 Pulse Source Pulse Oximeter Pulse Oximetry (%) 96 Oxygen Delivery Method Room Air Intake Visit Reasons: FMLA Forms ~ Allergies latex Allergy (Verified 06/24/23 11:18) Rash Medication List - Last Reconciled 07/03/23 by Cydney Kern MD acetaminophen ER (Arthritis Pain Relief (acetaminophen) ER) 650 mg PO Q12H PRN 90 days azelaic acid 15% topical DAILY betamethasone dipropionate 0.05% 0.05 appl topical DIRECTED cholecalciferol (vitamin D3) 25 mcg PO DAILY 90 days epinephrine IM famotidine (Pepcid) 20 mg PO BID 3 days fluocinonide 0.05% topical ketoconazole 2% 2 ea topical DAILY ketotifen fumarate 0.025%(0.035%) (Zaditor) 1 drp ophthalmic (eye) BID ruxolitinib 1.5% (Opzelura) appl topical tizanidine 2 mg PO TID PRN 30 days Tobacco use date assessed: 06/24/23 HPI FMLA Forms ~ HPI Details needed FMLA paper work 06/09/23 till 07/17/23 patient had surgery on her left toe as well and is healing well PFSH Medical History Pulmonary embolism Eczema Anemia Ulnar neuropathy Thyroid nodule Surgical History H/O toe surgery Hx of tubal ligation Family History Father Heart disease Hyperlipidemia Mother Diabetes mellitus Hyperlipidemia Maternal Aunt History of breast cancer Social History Household Members: Spouse and Children Housing: House Are you a primary health care marketing manager to a significant other at home: No Do you presently have visiting nurse or other home services: No Alcohol intake: never Patient Tobacco Use Status: Current everyday Tobacco user Years Smoked: 17 yrs e-Cigarette/Vaping Use: Never Used Second Hand Smoke Exposure: Yes service: No Current occupational status: employed 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 Romeo Miller, Emilee Chin, Augustine Tate and colleagues, with an educational jamshid from [employer]. Review of Systems Const All systems reviewed & are unremarkable except as noted in HPI and below Physical exam (Primary Care) Vital Signs: Last Vital Signs Pulse 75 07/03/23 10:13 BP 110/74 07/03/23 10:13 Pulse Ox 96 07/03/23 10:13 Oxygen Delivery Method Room Air 07/03/23 10:13 BMI result Body Mass Index 29.2 Tobacco/Smoking Status: Tobacco use Status Tobacco use date assessed 06/24/23 07/03/23 10:14 Patient Tobacco Use Status Current everyday Tobacco 07/03/23 10:14 Tobacco use type 05/08/23 15:33 e-Cigarette/Vaping Use Never Used 07/03/23 10:14 Thrive Assessment: Date of Thrive Assessment Date Thrive assessed 06/12/23 07/03/23 10:14 Const General: no acute distress Orientation/consciousness: patient oriented x3 Eyes General: appearance normal, both eyes and all related structures Resp Effort & Inspection: normal respiratory effort and able to speak in complete sentences Auscultation: clear to auscultation bilaterally Neuro General: patient oriented x3 Extrem Other: walking with limp Psych Mental Status: mental status grossly normal Assessment and Plan Assessment & Plan (1) Ingrown toenail of both feet: Code(s): L60.0 - Ingrowing nail Plan needed FMLA paper work 06/09/23 till 07/17/23 patient had surgery on her left toe as well and is healing well Coding Level of Care Code Est Pt Level 3 (97845) Diagnoses Ingrown toenail of both feet L60.0
[2023-07-03 10:13] VITALS: BP 110/74; PULSE 75; O2SAT 96; BMI 29.2
== END 2023-07-03 11:18 | disposition home or self-care (01) ==
PROVIDERS: PCP Internal Medicine; Visit Provider Internal Medicine
DX: L60.0 Ingrowing nail (principal)
CPT/HCPCS: 99213

== ENCOUNTER 2023-07-08 15:38 | Outpatient (AMB) | payer OTHER, SELFPAY ==
[2023-07-08 15:44] VITALS: PULSE 69; RESP 12; O2SAT 100; BMI 29.0
--- NOTE | 2023-07-08 15:44 | A.OFFVIS_ITS ---
Intake Vital Signs 07/08/23 15:44 Height 5 ft 5 in Weight 174 lb BMI 29.0 Blood Pressure Location Lt brachial Position Sitting Respiration 12 Pulse 69 Pulse Source Pulse Oximeter Pulse Oximetry (%) 100 Oxygen Delivery Method Room Air Intake Visit Reasons: Hip Xray Results/Confirmed Allergies latex Allergy (Verified 07/08/23 15:45) Rash Medication List - Last Reconciled 07/08/23 by Roxy Baron LPN acetaminophen ER (Arthritis Pain Relief (acetaminophen) ER) 650 mg PO Q12H PRN 90 days azelaic acid 15% topical DAILY betamethasone dipropionate 0.05% 0.05 appl topical DIRECTED cholecalciferol (vitamin D3) 25 mcg PO DAILY 90 days epinephrine IM famotidine (Pepcid) 20 mg PO BID 3 days fluocinonide 0.05% topical ketoconazole 2% 2 ea topical DAILY ketotifen fumarate 0.025%(0.035%) (Zaditor) 1 drp ophthalmic (eye) BID ruxolitinib 1.5% (Opzelura) appl topical tizanidine 2 mg PO TID PRN 30 days HPI HPI Comments History of Present Illness Details Alona is back in my office for the follow-up. Send the patient for x- ray of bilateral hips and she appeared to have in bilateral hip images changes in the acetabular portion of the joint. The patient reports at the same time that prolong sitting is aggravating her pain, especially prolonged sitting while driving. She has some Modic type changes in her L5-S1 vertebra is which could be a generator of this pain. However the patient wants me to try intra- articular hip injection 1st. I will schedule this procedure without sedation. This procedure will not be effective I will request Dr. Crispin Fournier ( [email or web address]) to re-evaluate her MRI with the attention to L5- S1 Modic type changes. If my suspicion is correct and there are some Modic type changes in her L5-S1 vertebras I can offer her intercept procedure. We also discussed today medical pain management. I explained to her that currently I cannot admit her to chronic opioid program but I told her to request about it in the future because we might open the opioid program for new admissions. She reported that tizanidine 2 mg help her moderately to minimally and there is no side effects. I suggested that we can elevate the dose to 4 mg t.i.d. and she agreed. Results of diagnostic SI joint injection are non conclusive. Patient had no pain before the injection. After the injection she started to feel pain aggravated. Unlikely SI joint is her pain generator. Prior: C/o pain in the projection of the buttock with minimal radiation to the right hip she reported that this pain started few years ago. She tried physical therapy and NSAIDs to treat this pain without any success. She was referred by primary care physician to Dr. Perdue for neurosurgical evaluation however Dr. Perdue did not find any indications to perform neuro surgery. She received MRI of the lumbar spine which is indicative of Modic type 2 changes at L2-L3 level which is dictated in the note of the radiologist, however after evaluation of the MRI I think Modic 1 type changes positive in L5-S1 level as well. We would need confirmation from radiologist on the changes. Dr. Perdue recommended diagnostic right sacroiliac joint injection to figure out this patient's pain generator. She reports her pain 6/10 to 10/10. She reports difficulty with prolong sitting and pain increase with flexing forward. 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 She reports that to 1 of her work sites will be close soon and she will be working less hours a week. She relatively healthy individual however she had pulmonary embolism 2 years ago and she is started on Eliquis. She reports today that she does not take Eliquis on regular basis. She reports that she can stop Eliquis 4 days before the procedure. She reports that she started smoking 2 months ago after 8 years of nonsmoking interval. she denies drinking alcohol she denies recreational drugs. [facility] Medical History Pulmonary embolism Eczema Anemia Ulnar neuropathy Thyroid nodule Surgical History H/O toe surgery Hx of tubal ligation Family History Father Heart disease Hyperlipidemia Mother Diabetes mellitus Hyperlipidemia Maternal Aunt History of breast cancer Social History Household Members: Spouse and Children Housing: House Are you a primary daycare manager to a significant other at home: No Do you presently have visiting nurse or other home services: No Alcohol intake: never Patient Tobacco Use Status: Current everyday Tobacco user Years Smoked: 17 yrs e-Cigarette/Vaping Use: Never Used Second Hand Smoke Exposure: Yes service: No Current occupational status: employed 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 Sexual orientation: Straight/Heterosexual Cognitive needs: No Hearing needs: No Vision needs: No Review of Systems Const All systems reviewed & are unremarkable except as noted in HPI and below ENT Reports Normal hearing present Neuro Reports Normal hearing present, Denies Abnormal speech present, Denies confusion and Denies Sensory deficit (Neuro) Psych Denies confusion Physical Exam Vital Signs: Last Vital Signs Pulse 69 07/08/23 15:44 Resp 12 07/08/23 15:44 Pulse Ox 100 07/08/23 15:44 Oxygen Delivery Method Room Air 07/08/23 15:44 BMI result Body Mass Index 29.0 Const General: no acute distress; No confusion Orientation/consciousness: patient oriented x3 and No confusion Eyes General: appearance normal, both eyes and all related structures Pupils: Equal, round and reactive pupils present EOM: EOMs intact bilaterally Neck Neck: Yes full ROM Chest Chest palpation & inspection: normal inspection of the chest Resp Effort & Inspection: normal respiratory effort, able to speak in complete sentences, normal respiratory pattern, no audible wheezes and no cough Cardio Jugular venous distension: no JVD GI Inspection: Yes normal to inspection Back/Spine/Pelvis Other: No tenderness on palpation on the left sacroiliac joint projection but severe tenderness on palpation in projection of the right sacroiliac joint. She also reports increase pain with Mikel test, pelvic compression test and tie thrust test. All those tests are positive on the right and negative on the left. Neuro General: patient oriented x3, gait normal and No confusion Cranial nerves: Yes CN's II-XII intact bilaterally, Yes Equal, round and reactive pupils present, Yes Normal hearing present and Yes Ability to bilaterally elevate shoulders present Speech: No Abnormal speech present Gait exam (Neuro): Normal gait present Motor exam (neuro): 5/5 motor strength present throughout Sensory Exam: No Sensory deficit (Neuro) Extrem General: No pedal edema Psych Speech and movement: Normal speech and movement present Affect: normal affect Attitude: cooperative Thought process: Normal thought process present Thought content: Normal thought content present Insight: Good insight present (Psych) Judgement: Good judgement present (Psych) Results Reviewed Results Reviewed: XR BILATERAL HIPS WITH AP PELVIS CLINICAL INFORMATION: Unilateral primary osteoarthritis. COMPARISON: None available. TECHNIQUE: AP view of the pelvis and AP and frog-leg lateral views of each hip were obtained. FINDINGS: Bony alignment and mineralization are normal. The bilateral acetabular joint spaces are symmetric and well-maintained. There is a slight irregularity and subchondral sclerosis of the bilateral acetabular roofs. The femoral heads are smooth. No fracture or dislocation is seen. Small pelvic phleboliths are noted. There are left lower quadrant surgical clips and bowel anastomosis skylar. IMPRESSION: There is very mild degenerative change of the hips. No fracture or dislocation is seen. MR LUMBAR SPINE WITHOUT CONTRAST 03/17/23. MRI of the lumbar spine was obtained using routine sequences without contrast. FINDINGS: There are 5 nonrib-bearing lumbar-type vertebral bodies. There are hypoplastic ribs at the lowermost thoracic type segment. Lumbar alignment is maintained. Vertebral body heights are preserved. Modic type I endplate signal changes on the left side at T12-L1 and anteriorly at L2-L3. No additional bone marrow edema. No acute fractures. Conus terminates at the T12-L1 level. Extrarenal pelvises bilaterally. Partially imaged 2.5 cm right adnexal cyst. Findings are overwhelmingly likely to represent a normal ovarian follicle. No followup imaging recommended. L1-L2: Disc contour is normal. There is no central canal stenosis and there is no foraminal stenosis. L2-L3: New small annular disc bulge and mild bilateral facet arthropathy. No central canal stenosis and no foraminal stenosis. L3-L4: Diffuse annular disc bulge the superimposed shallow central disc protrusion associated with an annular fissure that continues to mildly narrow the central canal, unchanged in comparison to the prior study. Disc osteophyte and facet arthropathy result in mild bilateral foraminal encroachment which is unchanged. L4-L5: Progressive shallow left paracentral disc protrusion associated with an annular fissure resulting in mass effect on the traversing left L5 nerve root within the left subarticular zone. Background annular disc bulge and moderate bilateral facet arthropathy. There is mild foraminal encroachment bilaterally. L5-S1: Diffuse annular disc bulge and mild bilateral facet arthropathy. There is no central canal stenosis. A far left lateral disc osteophyte protrusion likely mildly contacts the extraforaminal left L5 nerve root which is unchanged. IMPRESSION: - At L5-S1, a far left lateral disc osteophyte protrusion likely mildly contacts the extraforaminal left L5 nerve root which is unchanged. - At L4-L5, there is a progressive shallow left paracentral disc protrusion associated with an annular fissure resulting in mass effect on the traversing left L5 nerve root within the left subarticular zone. - At L3-L4, a shallow central disc protrusion associated with an annular fissure continues to mildly narrow the central canal. - Modic type I endplate signal changes on the left side at T12-L1 and anteriorly at L2-L3. Dictated By: Crispin Fournier MD Assessment & Plan Assessment & Plan (1) SI (sacroiliac) joint dysfunction: Code(s): M53.3 - Sacrococcygeal disorders, not elsewhere classified (2) Sacroiliitis: Code(s): M46.1 - Sacroiliitis, not elsewhere classified (3) Chronic right sacroiliac joint pain: Code(s): M53.3 - Sacrococcygeal disorders, not elsewhere classified; G89.29 - Other chronic pain (4) Vertebrogenic low back pain: Code(s): M54.51 - Vertebrogenic low back pain (5) Sacral pain: Code(s): M53.3 - Sacrococcygeal disorders, not elsewhere classified (6) Arthritis pain, hip: Code(s): M16.10 - Unilateral primary osteoarthritis, unspecified hip (7) Right hip pain: Code(s): M25.551 - Pain in right hip Plan This patient is very pleasant 43 years old female who is referred to this office with the intention to diagnose or rule out right sacroiliitis.However the right SI joint injection was non conclusive for the right sacroiliitis. At the same time history of prolong sitting and MRI changes at L2-L3 of Modic type changes of type 2 diagnosed by the radiologist ( as well as type 1 changes on L5-S1 area which I think a present on her MRI make me think about vertebrogenic pain generators. X-ray of bilateral hips demonstrated acetabular changes suggestive of arthritis. I will schedule this patient for intra-articular hip injection on the right where the patient reports her pain is most severe. If this will not be helpful for the patient's pain I will would like to ask Dr. Fournier to re-evaluate the MRI with attention to L5 and S1 vertebra is were I think may be Modic type 1 changes exists. If it is so I will be able to offer the patient L3, L5, S1 intercept procedure. Medications: New tizanidine 4 mg PO Q8H 30 days PRN 90 tabs 8RF muscle spasticity Discontinued tizanidine Discontinued Reason: Doctor's Order 2 mg PO TID 30 days PRN 90 tabs 1RF muscle spasticity Patient Instructions: I here by testify that I spent 45 minutes evaluating this patient's prior records, evaluating her x-ray and MRI images discussing future treatment with the patient, organizing her note, and planning her care. Coding Level of Care Code Est Pt Level 5 (84660) Diagnoses SI (sacroiliac) joint dysfunction M53.3 Sacroiliitis M46.1 Chronic right sacroiliac joint pain M53.3; G89.29 Vertebrogenic low back pain M54.51 Sacral pain M53.3 Arthritis pain, hip M16.10 Right hip pain M25.551
== END 2023-07-08 16:06 | disposition home or self-care (01) ==
PROVIDERS: PCP Internal Medicine; Visit Provider Anesthesiology
DX: M53.3 Sacrococcygeal disorders, not elsewhere classified (principal); M46.1 Sacroiliitis, not elsewhere classified; G89.29 Other chronic pain; M54.51 Vertebrogenic low back pain; M16.10 Unilateral primary osteoarthritis, unspecified hip; M25.551 Pain in right hip
CPT/HCPCS: 99215

== ENCOUNTER → 2023-07-08 15:38 | Outpatient (BNVA) | payer OTHER, SELFPAY | PROVIDERS: PCP Internal Medicine; Visit Provider Anesthesiology ==

== ENCOUNTER 2023-08-04 06:09 | Outpatient (REF) | payer OTHER, SELFPAY ==
--- NOTE | ~2023-08-04 | FL_ITS ---
EXAMINATION: XR FLUOROSCOPY WITH IMAGES CLINICAL INFORMATION: Pain in right hip. Right hip injection. COMPARISON: None available. TECHNIQUE: Fluoroscopy Supervised By: Dr. Ryan Sanchez. Fluoroscopy Time: 0.1 minute. Cumulative Dose: 3.97 mGy. DAP: 1.08 Gycm2. Images: 3. FINDINGS: Images demonstrate needle placement and contrast injection of the right hip joint FL/FL guidance in treatment room IMPRESSION: Fluoroscopy guidance for right hip injection.
== END 2023-08-04 06:10 | disposition home or self-care (01) ==
LOC: CF 06:09
PROVIDERS: Visit Provider Anesthesiology
DX: M53.3 Sacrococcygeal disorders, not elsewhere classified (principal); M46.1 Sacroiliitis, not elsewhere classified; M54.51 Vertebrogenic low back pain; M16.10 Unilateral primary osteoarthritis, unspecified hip
CPT/HCPCS: 20610; J2795; J3301; Q9967

== ENCOUNTER 2023-08-04 14:55 | Outpatient (AMB) | payer OTHER, SELFPAY ==
--- NOTE | 2023-08-04 15:08 | A.OFFVIS_ITS ---
Intake Vital Signs 08/04/23 15:09 08/04/23 15:29 Height 5 ft 5 in 5 ft 5 in Weight 174 lb BMI 29.0 BP 118/68 120/72 Blood Pressure Location Lt brachial Lt brachial Position Sitting Sitting Respiration 18 16 Pulse 71 74 Pulse Source Pulse Oximeter Pulse Oximeter Pulse Oximetry (%) 100 99 Oxygen Delivery Method Room Air Room Air Comment Pre-Op Post-Op Intake Visit Reasons: RIGHT INTRA-ARTICULAR HIP INJECTION Allergies latex Allergy (Verified 07/08/23 15:45) Rash PFSH Medical History Pulmonary embolism Eczema Anemia Ulnar neuropathy Thyroid nodule Surgical History H/O toe surgery Hx of tubal ligation Family History Father Heart disease Hyperlipidemia Mother Diabetes mellitus Hyperlipidemia Maternal Aunt History of breast cancer Social History Household Members: Spouse and Children Housing: House Are you a primary palliative care specialist to a significant other at home: No Do you presently have visiting nurse or other home services: No Alcohol intake: never Patient Tobacco Use Status: Current everyday Tobacco user Years Smoked: 17 yrs e-Cigarette/Vaping Use: Never Used Second Hand Smoke Exposure: Yes service: No Current occupational status: employed 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 Sexual orientation: Straight/Heterosexual Cognitive needs: No Hearing needs: No Vision needs: No Physical Exam Vital Signs: Last Vital Signs Pulse 74 08/04/23 15:29 Resp 16 08/04/23 15:29 BP 120/72 08/04/23 15:29 Pulse Ox 99 08/04/23 15:29 Oxygen Delivery Method Room Air 08/04/23 15:29 BMI result Body Mass Index 29.0 Assessment & Plan Assessment & Plan (1) SI (sacroiliac) joint dysfunction: Code(s): M53.3 - Sacrococcygeal disorders, not elsewhere classified (2) Sacroiliitis: Code(s): M46.1 - Sacroiliitis, not elsewhere classified (3) Chronic right sacroiliac joint pain: Code(s): M53.3 - Sacrococcygeal disorders, not elsewhere classified; G89.29 - Other chronic pain (4) Vertebrogenic low back pain: Code(s): M54.51 - Vertebrogenic low back pain (5) Sacral pain: Code(s): M53.3 - Sacrococcygeal disorders, not elsewhere classified (6) Arthritis pain, hip: Code(s): M16.10 - Unilateral primary osteoarthritis, unspecified hip (7) Right hip pain: Code(s): M25.551 - Pain in right hip Plan: right hip steroid injection. Informed consent was explained to the patient. All questions were explained and answered. The patient was taken inside of the operating room where she was positioned left lateral decubitus on operating table.. Time-out was performed delineating patient's name and date of , correct site, side, the nature of the procedure, patient's allergy, preoperative antibiotic if needed, need for VT prophylaxis.. All operating room staff was participating in OR time-out procedure. Right hip area of the patient was prepped with ChloraPrep and draped with sterile towels. C-arm was brought over the operating field and picture of left and right lateral views of the bilateral hip joints were delineated on the screen. The smaller joint silhouette was chosen as the target. Projection of the right trochanter to the skin was chosen as the initial needle insertion point. After that the skin and subcutaneous tissues was anesthetized with 2% lidocaine 2.5 mL. 22 gauge 5 in long needle was inserted through the skin and started to advance to the joint space under intermittent lateral and anterior posterior views. When needle entered the capsule of the joint small amount of the contrast was injected delineating intra-articular space. After that treatment solution containing 3 cc of lidocaine 2%, 2 cc of bupivacaine 0.5% and 40 mg of Kenalog was injected into the joint. The needle was withdrawn sterile dressing was applied.The patient tolerated procedure well Plan This patient is very pleasant 43 years old female who is referred to this office with the intention to diagnose or rule out right sacroiliitis.However the right SI joint injection was non conclusive for the right sacroiliitis. At the same time history of prolong sitting and MRI changes at L2-L3 of Modic type changes of type 2 diagnosed by the radiologist ( as well as type 1 changes on L5-S1 area which I think a present on her MRI make me think about vertebrogenic pain generators. X-ray of bilateral hips demonstrated acetabular changes suggestive of arthritis. I will schedule this patient for intra-articular hip injection on the right where the patient reports her pain is most severe. If this will not be helpful for the patient's pain I will would like to ask Dr. Fournier to re-evaluate the MRI with attention to L5 and S1 vertebra is were I think may be Modic type 1 changes exists. If it is so I will be able to offer the patient L3, L5, S1 intercept procedure. Orders: Orders FL guidance in treatment room Today M25.551 - Pain in right hip Coding Level of Care Code Procedure Only Diagnoses SI (sacroiliac) joint dysfunction M53.3 Sacroiliitis M46.1 Chronic right sacroiliac joint pain M53.3; G89.29 Vertebrogenic low back pain M54.51 Sacral pain M53.3 Arthritis pain, hip M16.10 Right hip pain M25.551
[2023-08-04 15:09] VITALS: BP 118/68; PULSE 71; RESP 18; O2SAT 100
[2023-08-04 15:29] VITALS: BP 120/72; PULSE 74; RESP 16; O2SAT 99; BMI 29.0
== END 2023-08-04 15:26 | disposition home or self-care (01) ==
LOC: HO.PMCPRC 14:55
PROVIDERS: PCP Internal Medicine; Visit Provider Anesthesiology
DX: M53.3 Sacrococcygeal disorders, not elsewhere classified (principal); M46.1 Sacroiliitis, not elsewhere classified; G89.29 Other chronic pain; M54.51 Vertebrogenic low back pain; M16.10 Unilateral primary osteoarthritis, unspecified hip; M25.551 Pain in right hip
CPT/HCPCS: 20610; 77002

== ENCOUNTER 2023-09-07 14:53 | Outpatient (AMB) | payer OTHER, SELFPAY ==
--- NOTE | 2023-09-07 14:58 | MHC.OFFVIS ---
Intake Vital Signs 09/07/23 15:03 Height 5 ft 5 in Weight 175 lb 6 oz BMI 29.2 BP 106/58 L Blood Pressure Location Lt brachial Position Sitting Respiration 16 Pulse 71 Pulse Source Pulse Oximeter Pulse Oximetry (%) 98 Oxygen Delivery Method Room Air Intake Visit Reasons: R HIP STEROID INJ 08/04/23/confirmed Intake Note: Patient comes in for post-op appointment. Reports pain 0/10. Allergies latex Allergy (Verified 09/07/23 15:02) Rash HPI HPI Comments History of Present Illness Details Alona is back in my office for the follow-up. She received therapeutic right hip injection and she reports today that for the past month since the last injection the pain in the lower back and the hip was 0/10. She is very satisfied with this procedure. She reports better mobility better social interactions better activities of daily living. However today she was complaining on pain in the base of her neck radiating alongside the posterior surface of the neck and into the back of her head and into the sides of the head. She was in the past diagnosed with cervical joints arthritis however she never went for physical therapy to treat this condition. We agreed that I will schedule her for cervical physical therapy, I recommended her to go for at least 4 sessions, document very carefully physical therapy, and after that perform physical therapy about 3-4 x 15 to 20 minutes at the occasion. We agreed that I will see her in 2 months. Prior: appeared to have in bilateral hip images changes in the acetabular portion of the joint. The patient reports at the same time that prolong sitting is aggravating her pain, especially prolonged sitting while driving. She has some Modic type changes in her L5-S1 vertebra is which could be a generator of this pain. Results of diagnostic SI joint injection are non conclusive. Patient had no pain before the injection. After the injection she started to feel pain aggravated. Unlikely SI joint is her pain generator. C/o pain in the projection of the buttock with minimal radiation to the right hip she reported that this pain started few years ago. She tried physical therapy and NSAIDs to treat this pain without any success. She was referred by primary care physician to Dr. Perdue for neurosurgical evaluation however Dr. Perdue did not find any indications to perform neuro surgery. She received MRI of the lumbar spine which is indicative of Modic type 2 changes at L2-L3 level which is dictated in the note of the radiologist, however after evaluation of the MRI I think Modic 1 type changes positive in L5-S1 level as well. We would need confirmation from radiologist on the changes. Dr. Perdue recommended diagnostic right sacroiliac joint injection to figure out this patient's pain generator. She reports her pain 6/10 to 10/10. She reports difficulty with prolong sitting and pain increase with flexing forward. 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 She reports that to 1 of her work sites will be close soon and she will be working less hours a week. She relatively healthy individual however she had pulmonary embolism 2 years ago and she is started on Eliquis. She reports today that she does not take Eliquis on regular basis. She reports that she can stop Eliquis 4 days before the procedure. She reports that she started smoking 2 months ago after 8 years of nonsmoking interval. she denies drinking alcohol she denies recreational drugs. [facility] Medical History Pulmonary embolism Eczema Anemia Ulnar neuropathy Thyroid nodule Surgical History H/O toe surgery Hx of tubal ligation Family History Father Heart disease Hyperlipidemia Mother Diabetes mellitus Hyperlipidemia Maternal Aunt History of breast cancer Social History Household Members: Spouse and Children Housing: House Are you a primary hemodialysis patient care specialist to a significant other at home: No Do you presently have visiting nurse or other home services: No Alcohol intake: never Patient Tobacco Use Status: Current everyday Tobacco user Years Smoked: 17 yrs e-Cigarette/Vaping Use: Never Used Second Hand Smoke Exposure: Yes service: No Current occupational status: employed 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 Sexual orientation: Straight/Heterosexual Cognitive needs: No Hearing needs: No Vision needs: No Review of Systems Const All systems reviewed & are unremarkable except as noted in HPI and below ENT Reports Normal hearing present Neuro Reports Normal hearing present, Denies Abnormal speech present, Denies confusion and Denies Sensory deficit (Neuro) Psych Denies confusion Physical Exam Vital Signs: Last Vital Signs Pulse 71 09/07/23 15:03 Resp 16 09/07/23 15:03 BP 106/58 L 09/07/23 15:03 Pulse Ox 98 09/07/23 15:03 Oxygen Delivery Method Room Air 09/07/23 15:03 BMI result Body Mass Index 29.2 Const General: no acute distress; No confusion Orientation/consciousness: patient oriented x3 and No confusion Eyes General: appearance normal, both eyes and all related structures Pupils: Equal, round and reactive pupils present EOM: EOMs intact bilaterally Neck Neck: Yes full ROM Chest Chest palpation & inspection: normal inspection of the chest Resp Effort & Inspection: normal respiratory effort, able to speak in complete sentences, normal respiratory pattern, no audible wheezes and no cough Cardio Jugular venous distension: no JVD GI Inspection: Yes normal to inspection Back/Spine/Pelvis Other: No tenderness on palpation on the left sacroiliac joint projection but severe tenderness on palpation in projection of the right sacroiliac joint. She also reports increase pain with Mikel test, pelvic compression test and tie thrust test. All those tests are positive on the right and negative on the left. Neuro General: patient oriented x3, gait normal and No confusion Cranial nerves: Yes CN's II-XII intact bilaterally, Yes Equal, round and reactive pupils present, Yes Normal hearing present and Yes Ability to bilaterally elevate shoulders present Speech: No Abnormal speech present Gait exam (Neuro): Normal gait present Motor exam (neuro): 5/5 motor strength present throughout Sensory Exam: No Sensory deficit (Neuro) Extrem General: No pedal edema Psych Speech and movement: Normal speech and movement present Affect: normal affect Attitude: cooperative Thought process: Normal thought process present Thought content: Normal thought content present Insight: Good insight present (Psych) Judgement: Good judgement present (Psych) Assessment & Plan Assessment & Plan (1) SI (sacroiliac) joint dysfunction: Code(s): M53.3 - Sacrococcygeal disorders, not elsewhere classified (2) Sacroiliitis: Code(s): M46.1 - Sacroiliitis, not elsewhere classified (3) Chronic right sacroiliac joint pain: Code(s): M53.3 - Sacrococcygeal disorders, not elsewhere classified; G89.29 - Other chronic pain (4) Vertebrogenic low back pain: Code(s): M54.51 - Vertebrogenic low back pain (5) Sacral pain: Code(s): M53.3 - Sacrococcygeal disorders, not elsewhere classified (6) Arthritis pain, hip: Code(s): M16.10 - Unilateral primary osteoarthritis, unspecified hip (7) Right hip pain: Code(s): M25.551 - Pain in right hip (8) Spondylosis of cervical spine: Code(s): M47.812 - Spondylosis without myelopathy or radiculopathy, cervical region (9) Occipital neuralgia: Code(s): M54.81 - Occipital neuralgia (10) Cervicalgia: Code(s): M54.2 - Cervicalgia Plan This patient is very pleasant 43 years old female who is referred to this office with the intention to diagnose or rule out right sacroiliitis.However the right SI joint injection was non conclusive for the right sacroiliitis. At the same time history of prolong sitting and MRI changes at L2-L3 of Modic type changes of type 2 diagnosed by the radiologist ( as well as type 1 changes on L5-S1 area which I think a present on her MRI make me think about vertebrogenic pain generators. X-ray of bilateral hips demonstrated acetabular changes suggestive of arthritis. I will schedule this patient for intra-articular hip injection on the right where the patient reports her pain is most severe. Right hip injection alleviated all the pain in the lower back with radiation to the hip. However patient complained today on cervicalgia and occipital neuralgia see above. I will schedule this patient for physical therapy. I also recommended her low impact aerobic exercises such as elliptical machine stationary bicycle or swimming. I also recommended to cut down at least her smoking to 3 4 cigarettes a day. Orders: Orders PT Evaluation and Treatment Today M47.812 - Spondylosis without myelopathy or radiculopathy, cervical region, M54.2 - Cervicalgia, M54.81 - Occipital neuralgia Patient Instructions: I here by testify that I spent 36 minutes in conversation with this patient as well as planning her care and organizing her note. Coding Level of Care Code Est Pt Level 4 (59904) Diagnoses SI (sacroiliac) joint dysfunction M53.3 Sacroiliitis M46.1 Chronic right sacroiliac joint pain M53.3; G89.29 Vertebrogenic low back pain M54.51 Sacral pain M53.3 Arthritis pain, hip M16.10 Right hip pain M25.551 Spondylosis of cervical spine M47.812 Occipital neuralgia M54.81 Cervicalgia M54.2
[2023-09-07 15:03] VITALS: BP 106/58; PULSE 71; RESP 16; O2SAT 98; BMI 29.2
== END 2023-09-07 15:17 | disposition home or self-care (01) ==
PROVIDERS: PCP Internal Medicine; Visit Provider Anesthesiology
DX: M53.3 Sacrococcygeal disorders, not elsewhere classified (principal); M46.1 Sacroiliitis, not elsewhere classified; G89.29 Other chronic pain; M54.51 Vertebrogenic low back pain; M16.10 Unilateral primary osteoarthritis, unspecified hip; M25.551 Pain in right hip; M47.812 Spondylosis without myelopathy or radiculopathy, cervical region; M54.81 Occipital neuralgia; M54.2 Cervicalgia
CPT/HCPCS: 99214

== ENCOUNTER → 2023-09-07 14:53 | Outpatient (BNVA) | payer OTHER, SELFPAY | PROVIDERS: PCP Internal Medicine; Visit Provider Anesthesiology ==

== ENCOUNTER 2023-09-16 08:07 | Outpatient (REF) | payer OTHER, MEDICAID, SELFPAY | END 2023-09-16 08:08 | disposition home or self-care (01) | LOC: HO.MAMMO 08:07 | PROVIDERS: PCP Internal Medicine; Visit Provider Advanced Practice Midwife | DX: Z12.31 Encounter for screening mammogram for malignant neoplasm of breast (principal) | CPT/HCPCS: 77063; 77067 ==

== ENCOUNTER → 2023-09-16 08:15 | Outpatient (BNV) | payer OTHER, SELFPAY | PROVIDERS: PCP Internal Medicine; Visit Provider Radiology Diagnostic Radiology | DX: Z12.31 Encounter for screening mammogram for malignant neoplasm of breast (principal) | CPT/HCPCS: 77063; 77067 ==

== ENCOUNTER 2023-09-30 07:52 | Outpatient (AMB) | payer OTHER, SELFPAY ==
--- NOTE | 2023-09-30 07:55 | MHC.OFFVIS ---
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 Doing well with no concerns. She tries to eat healthy and stays active with exercise-walks at works. She feels tired from night shifts. Skipping menses for months, occasional hot flashes, elevated FSH last year. Currently is sexually active, same snf partner. She denies vaginal itching and irritation. STI screening offered; she declines. Denies family history of ovarian or colon cancer. FH breast cancer. Last pap smear 2020, negative. Mammogram: UTD, pending report. [facility] Medical History Pulmonary embolism Eczema Anemia Ulnar neuropathy Thyroid nodule Surgical History H/O toe surgery Hx of tubal ligation Family History Father Heart disease Hyperlipidemia Mother Diabetes mellitus Hyperlipidemia Maternal Aunt History of breast cancer Social History Household Members: Spouse and Children Housing: House Are you a primary home health care provider to a significant other at home: No Do you presently have visiting nurse or other home services: No Alcohol intake: never Patient Tobacco Use Status: Current everyday Tobacco user Years Smoked: 17 yrs e-Cigarette/Vaping Use: Never Used Second Hand Smoke Exposure: Yes service: No Current occupational status: employed 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 Sexual orientation: Straight/Heterosexual Cognitive needs: No Hearing needs: No Vision needs: No Female Reproductive History Menstrual control method: permanent sterilization Permanent Sterilization: BTL Total pregnancies: 4 Full term: 4 Number of Living Children: 4 Date of last pap smear: 08/08/20 (neg pap and hpv) Date of Mammogram: 09/16/23 Review of Systems Const All systems reviewed & are unremarkable except as noted in HPI and below Reports as per HPI Eyes Reports no additional complaints ENT Reports no additional complaints Card Reports no additional complaints Resp Reports no additional complaints GI Reports as per HPI and Reports no additional complaints Reports as per HPI Musc Reports no additional complaints Skin/Breast Reports as per HPI Neuro Reports no additional complaints Psych Reports no additional complaints Endo Reports no additional complaints Perez/Lymph Reports no additional complaints Aller/Immun Reports no additional complaints Physical Exam Vital Signs: Last Vital Signs BP 92/60 09/30/23 08:00 BMI result Body Mass Index 29.8 Const General: cooperative, healthy appearing, no acute distress, well developed and alert Orientation/consciousness: patient oriented x3 HEENT Head: Yes normal to inspection Eyes General: appearance normal, both eyes and all related structures Neck Neck: Yes normal visual inspection Thyroid: Thyroid normal Chest Chest palpation & inspection: normal inspection of the chest and other (no puckering, dimpling, peau de orange, retraction, discharge, masses) Breast/axilla inspection: normal inspection of the breasts Breast/axilla palpation: normal palpation of the breasts Resp Effort & Inspection: normal respiratory effort GI Inspection: Yes normal to inspection Palpation (GI): Soft to palpation Rectal Exam - Female: deferred General: Yes bladder normal to palpation External Female Exam: normal external appearance and normal appearance of the urethra Speculum Exam - Vagina: normal appearance of the vagina, normal palpation and normal vaginal discharge Speculum Exam - Cervix: normal appearance of the cervix and normal palpation Bimanual exam- vagina & uterus: normal bimanual exam, normal palpation, uterine size normal, bladder normal to palpation, normal palpation and non-tender Bimanual Exam- Adnexa, other: no masses Skin General skin exam: no rashes or lesions noted Rashes: no rashes Neuro General: patient oriented x3 Cognition (Neuro): normal cognition Extrem General: Yes normal to inspection Psych Attitude: cooperative Thought process: Normal thought process present Assessment & Plan Assessment & Plan (1) Encounter for well woman exam with routine gynecological exam: Code(s): Z01.419 - Encounter for gynecological examination (general) (routine) without abnormal findings Plan Discussed: Current recommendations for pap smears per ASCCP guidelines. Breast awareness and periodic breast exams. Maintain a healthy lifestyle including a well balanced diet and routine exercise. Monitor menstrual cycles, report any unscheduled bleeding, bleeding episodes <21 days apart or heavy/prolonged menstrual bleeding. Perimenopause versus menopause, menopause is after 1 year of no menses. Mammogram yearly. Colonoscopy >45, or at risk sooner. Patient verbalizes understanding and agrees to the plan of care. She was given opportunity to ask questions and all questions were answered to the best of my ability. 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 This note is constructed using voice recognition software. While every effort has been made to ensure accuracy, physician's aide errors may have been included. Coding Level of Care Code Est Pt Prev Care 40-64y(63955) Diagnoses Encounter for well woman exam with routine gynecological exam Z01.419
[2023-09-30 08:00] VITALS: BP 92/60; BMI 29.8
== END 2023-09-30 08:40 | disposition home or self-care (01) ==
LOC: HO.HWS 07:53
PROVIDERS: PCP Internal Medicine; Visit Provider Advanced Practice Midwife
DX: Z01.419 Encounter for gynecological examination (general) (routine) without abnormal findings (principal)
CPT/HCPCS: 99396

== ENCOUNTER → 2023-09-30 07:52 | Outpatient (BNVA) | payer OTHER, SELFPAY | PROVIDERS: PCP Internal Medicine; Visit Provider Advanced Practice Midwife ==

== ENCOUNTER 2023-11-05 15:19 | Outpatient (AMB) | payer OTHER, SELFPAY ==
--- NOTE | 2023-11-05 15:20 | MHC.OFFVIS ---
Intake Vital Signs 11/06/23 09:23 Height 5 ft 5 in Weight 179 lb BMI 29.8 BP 128/74 Blood Pressure Location Lt brachial Position Sitting Respiration 14 Pulse 69 Pulse Source Pulse Oximeter Pulse Oximetry (%) 98 Oxygen Delivery Method Room Air Intake Visit Reasons: 2 MONTH FOLLOW UP Intake Note: Patient comes in for follow up appointment. Reports pain 0/10. Allergies latex Allergy (Verified 11/06/23 09:24) Rash HPI HPI Comments History of Present Illness Details Alona is back in my office for the follow-up. She reports no pain today. I recommended her to stay active perform activities of daily living, get engaged in low impact aerobic exercise. If her pain will come back I welcome her to call me and schedule an appointment. Prior: She received therapeutic right hip injection and she reports today that for the past month since the last injection the pain in the lower back and the hip was 0/10. She is very satisfied with this procedure. She reports better mobility better social interactions better activities of daily living. However today she was complaining on pain in the base of her neck radiating alongside the posterior surface of the neck and into the back of her head and into the sides of the head. She was in the past diagnosed with cervical joints arthritis however she never went for physical therapy to treat this condition. We agreed that I will schedule her for cervical physical therapy, I recommended her to go for at least 4 sessions, document very carefully physical therapy, and after that perform physical therapy about 3-4 x 15 to 20 minutes at the occasion. We agreed that I will see her in 2 months. Prior: appeared to have in bilateral hip images changes in the acetabular portion of the joint. The patient reports at the same time that prolong sitting is aggravating her pain, especially prolonged sitting while driving. She has some Modic type changes in her L5-S1 vertebra is which could be a generator of this pain. Results of diagnostic SI joint injection are non conclusive. Patient had no pain before the injection. After the injection she started to feel pain aggravated. Unlikely SI joint is her pain generator. C/o pain in the projection of the buttock with minimal radiation to the right hip she reported that this pain started few years ago. She tried physical therapy and NSAIDs to treat this pain without any success. She was referred by primary care physician to Dr. Perdue for neurosurgical evaluation however Dr. Perdue did not find any indications to perform neuro surgery. She received MRI of the lumbar spine which is indicative of Modic type 2 changes at L2-L3 level which is dictated in the note of the radiologist, however after evaluation of the MRI I think Modic 1 type changes positive in L5-S1 level as well. We would need confirmation from radiologist on the changes. Dr. Perdue recommended diagnostic right sacroiliac joint injection to figure out this patient's pain generator. She reports her pain 6/10 to 10/10. She reports difficulty with prolong sitting and pain increase with flexing forward. 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 She reports that to 1 of her work sites will be close soon and she will be working less hours a week. She relatively healthy individual however she had pulmonary embolism 2 years ago and she is started on Eliquis. She reports today that she does not take Eliquis on regular basis. She reports that she can stop Eliquis 4 days before the procedure. She reports that she started smoking 2 months ago after 8 years of nonsmoking interval. she denies drinking alcohol she denies recreational drugs. [facility] Medical History Pulmonary embolism Eczema Anemia Ulnar neuropathy Thyroid nodule Surgical History H/O toe surgery Hx of tubal ligation Family History Father Heart disease Hyperlipidemia Mother Diabetes mellitus Hyperlipidemia Maternal Aunt History of breast cancer Social History Household Members: Spouse and Children Housing: House Are you a primary medicare sales executive to a significant other at home: No Do you presently have visiting nurse or other home services: No Alcohol intake: never Patient Tobacco Use Status: Current everyday Tobacco user Years Smoked: 17 yrs e-Cigarette/Vaping Use: Never Used Second Hand Smoke Exposure: Yes service: No Current occupational status: employed 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 Sexual orientation: Straight/Heterosexual Cognitive needs: No Hearing needs: No Vision needs: No Review of Systems Const All systems reviewed & are unremarkable except as noted in HPI and below ENT Reports Normal hearing present Neuro Reports Normal hearing present, Denies Abnormal speech present, Denies confusion and Denies Sensory deficit (Neuro) Psych Denies confusion Physical Exam Vital Signs: Last Vital Signs Pulse 69 11/06/23 09:23 Resp 14 11/06/23 09:23 BP 128/74 11/06/23 09:23 Pulse Ox 98 11/06/23 09:23 Oxygen Delivery Method Room Air 11/06/23 09:23 BMI result Body Mass Index 29.8 Const General: no acute distress; No confusion Orientation/consciousness: patient oriented x3 and No confusion Eyes General: appearance normal, both eyes and all related structures Pupils: Equal, round and reactive pupils present EOM: EOMs intact bilaterally Chest Chest palpation & inspection: normal inspection of the chest Resp Effort & Inspection: normal respiratory effort, able to speak in complete sentences, normal respiratory pattern, no audible wheezes and no cough Cardio Jugular venous distension: no JVD GI Inspection: Yes normal to inspection Back/Spine/Pelvis Other: No tenderness on palpation on the left sacroiliac joint projection but severe tenderness on palpation in projection of the right sacroiliac joint. She also reports increase pain with Mikel test, pelvic compression test and tie thrust test. All those tests are positive on the right and negative on the left. Neuro General: patient oriented x3, gait normal and No confusion Cranial nerves: Yes CN's II-XII intact bilaterally, Yes Equal, round and reactive pupils present, Yes Normal hearing present and Yes Ability to bilaterally elevate shoulders present Speech: No Abnormal speech present Gait exam (Neuro): Normal gait present Motor exam (neuro): 5/5 motor strength present throughout Sensory Exam: No Sensory deficit (Neuro) Extrem General: No pedal edema Psych Speech and movement: Normal speech and movement present Affect: normal affect Attitude: cooperative Thought process: Normal thought process present Thought content: Normal thought content present Insight: Good insight present (Psych) Judgement: Good judgement present (Psych) Results Reviewed Results Reviewed: XR BILATERAL HIPS WITH AP PELVIS CLINICAL INFORMATION: Unilateral primary osteoarthritis. COMPARISON: None available. TECHNIQUE: AP view of the pelvis and AP and frog-leg lateral views of each hip were obtained. FINDINGS: Bony alignment and mineralization are normal. The bilateral acetabular joint spaces are symmetric and well-maintained. There is a slight irregularity and subchondral sclerosis of the bilateral acetabular roofs. The femoral heads are smooth. No fracture or dislocation is seen. Small pelvic phleboliths are noted. There are left lower quadrant surgical clips and bowel anastomosis skylar. IMPRESSION: There is very mild degenerative change of the hips. No fracture or dislocation is seen. MR LUMBAR SPINE WITHOUT CONTRAST 03/17/23. MRI of the lumbar spine was obtained using routine sequences without contrast. FINDINGS: There are 5 nonrib-bearing lumbar-type vertebral bodies. There are hypoplastic ribs at the lowermost thoracic type segment. Lumbar alignment is maintained. Vertebral body heights are preserved. Modic type I endplate signal changes on the left side at T12-L1 and anteriorly at L2-L3. No additional bone marrow edema. No acute fractures. Conus terminates at the T12-L1 level. Extrarenal pelvises bilaterally. Partially imaged 2.5 cm right adnexal cyst. Findings are overwhelmingly likely to represent a normal ovarian follicle. No followup imaging recommended. L1-L2: Disc contour is normal. There is no central canal stenosis and there is no foraminal stenosis. L2-L3: New small annular disc bulge and mild bilateral facet arthropathy. No central canal stenosis and no foraminal stenosis. L3-L4: Diffuse annular disc bulge the superimposed shallow central disc protrusion associated with an annular fissure that continues to mildly narrow the central canal, unchanged in comparison to the prior study. Disc osteophyte and facet arthropathy result in mild bilateral foraminal encroachment which is unchanged. L4-L5: Progressive shallow left paracentral disc protrusion associated with an annular fissure resulting in mass effect on the traversing left L5 nerve root within the left subarticular zone. Background annular disc bulge and moderate bilateral facet arthropathy. There is mild foraminal encroachment bilaterally. L5-S1: Diffuse annular disc bulge and mild bilateral facet arthropathy. There is no central canal stenosis. A far left lateral disc osteophyte protrusion likely mildly contacts the extraforaminal left L5 nerve root which is unchanged. IMPRESSION: - At L5-S1, a far left lateral disc osteophyte protrusion likely mildly contacts the extraforaminal left L5 nerve root which is unchanged. - At L4-L5, there is a progressive shallow left paracentral disc protrusion associated with an annular fissure resulting in mass effect on the traversing left L5 nerve root within the left subarticular zone. - At L3-L4, a shallow central disc protrusion associated with an annular fissure continues to mildly narrow the central canal. - Modic type I endplate signal changes on the left side at T12-L1 and anteriorly at L2-L3. Dictated By: Crispin Fournier MD Assessment & Plan Assessment & Plan (1) SI (sacroiliac) joint dysfunction: Code(s): M53.3 - Sacrococcygeal disorders, not elsewhere classified (2) Sacroiliitis: Code(s): M46.1 - Sacroiliitis, not elsewhere classified (3) Chronic right sacroiliac joint pain: Code(s): M53.3 - Sacrococcygeal disorders, not elsewhere classified; G89.29 - Other chronic pain (4) Vertebrogenic low back pain: Code(s): M54.51 - Vertebrogenic low back pain (5) Sacral pain: Code(s): M53.3 - Sacrococcygeal disorders, not elsewhere classified (6) Arthritis pain, hip: Code(s): M16.10 - Unilateral primary osteoarthritis, unspecified hip (7) Right hip pain: Code(s): M25.551 - Pain in right hip (8) Spondylosis of cervical spine: Code(s): M47.812 - Spondylosis without myelopathy or radiculopathy, cervical region (9) Occipital neuralgia: Code(s): M54.81 - Occipital neuralgia (10) Cervicalgia: Code(s): M54.2 - Cervicalgia Plan Today 11/05/2023 patient reports no pain. I aerobic exercise low impact recommended. Diet recommended. No new appointment is needed. right SI joint injection was non conclusive for the right sacroiliitis. At the same time history of prolong sitting and MRI changes at L2-L3 of Modic type changes of type 2 diagnosed by the radiologist ( as well as type 1 changes on L5-S1 area which I think a present on her MRI make me think about vertebrogenic pain generators. X-ray of bilateral hips demonstrated acetabular changes suggestive of arthritis. Right hip injection alleviated all the pain in the lower back with radiation to the hip. Complained on cervicalgia and occipital neuralgia see above. Was referred to physical therapy but never went because her pain is non-existent now. Coding Level of Care Code Est Pt Level 3 (69219) Diagnoses SI (sacroiliac) joint dysfunction M53.3 Sacroiliitis M46.1 Chronic right sacroiliac joint pain M53.3; G89.29 Vertebrogenic low back pain M54.51 Sacral pain M53.3 Arthritis pain, hip M16.10 Right hip pain M25.551 Spondylosis of cervical spine M47.812 Occipital neuralgia M54.81 Cervicalgia M54.2
[2023-11-06 09:23] VITALS: BP 128/74; PULSE 69; RESP 14; O2SAT 98; BMI 29.8
== END 2023-11-05 15:37 | disposition home or self-care (01) ==
LOC: HO.PMC 15:19
PROVIDERS: PCP Internal Medicine; Visit Provider Anesthesiology
DX: M53.3 Sacrococcygeal disorders, not elsewhere classified (principal); M46.1 Sacroiliitis, not elsewhere classified; G89.29 Other chronic pain; M54.51 Vertebrogenic low back pain; M16.10 Unilateral primary osteoarthritis, unspecified hip; M25.551 Pain in right hip; M47.812 Spondylosis without myelopathy or radiculopathy, cervical region; M54.81 Occipital neuralgia; M54.2 Cervicalgia
CPT/HCPCS: 99213

== ENCOUNTER → 2023-11-05 15:19 | Outpatient (BNVA) | payer OTHER, SELFPAY | PROVIDERS: PCP Internal Medicine; Visit Provider Anesthesiology ==

== ENCOUNTER 2024-05-31 14:07 | Outpatient (AMB) | payer OTHER, SELFPAY ==
[2024-05-31 14:14] VITALS: BP 122/74; PULSE 70; O2SAT 99; BMI 32.9
--- NOTE | 2024-05-31 14:14 | A.OFFPC_ITS ---
Vital Signs 05/31/24 14:14 Height 5 ft 5 in Weight 197 lb 8 oz BMI 32.9 BP 122/74 Blood Pressure Location Rt brachial Position Sitting Pulse 70 Pulse Source Pulse Oximeter Pulse Oximetry (%) 99 Oxygen Delivery Method Room Air Intake Visit Reasons: Annual Physical Allergies latex Allergy (Verified 05/31/24 14:17) Rash Medication List - Last Reconciled 05/31/24 by Cydney Kern MD acetaminophen ER (Arthritis Pain Relief (acetaminophen) ER) 650 mg PO Q12H PRN 90 days cholecalciferol (vitamin D3) 25 mcg PO DAILY 90 days Tobacco use date assessed: 05/31/24 Dental Screening Dental Screen Date: 05/31/24 Did you have a dental visit in the last 12 months?: Yes Did you have a dental problem in the last 6 months where you did not have access to dental care?: No Was dental information given to patient?: Patient has dentist HPI Annual Physical HPI Details Physical exam appointment Patient suffers from skin condition she was seeing a supervisor winding department the past 3 years Patient says that they have tried everything and she continued to the problem She does not remember who she saw she will get back to me regarding the name of the doctors we can request notes She will need a 2nd opinion Mammogram is up-to-date OBGYN visit is up-to-date She continued to smoke once again advised to stop smoking Complaining of feeling cold I have added TSH level Labs are needed to be done fasting PFSH Medical History Pulmonary embolism Eczema Anemia Ulnar neuropathy Thyroid nodule Surgical History H/O toe surgery Hx of tubal ligation Family History Father Heart disease Hyperlipidemia Mother Diabetes mellitus Hyperlipidemia Maternal Aunt History of breast cancer Social History Household Members: Spouse and Children Housing: House Are you a primary dialysis patient care technician to a significant other at home: No Do you presently have visiting nurse or other home services: No Alcohol intake: never Patient Tobacco Use Status: Current everyday Tobacco user Years Smoked: 17 yrs e-Cigarette/Vaping Use: Never Used Second Hand Smoke Exposure: Yes service: No Current occupational status: employed 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 1. Little interest or pleasure in doing things: not at all 2. Feeling down, depressed, or hopeless: not at all 3. Trouble falling or staying asleep, or sleeping too much: not at all 4. Feeling tired or having little energy: more than half the days 5. Poor appetite or overeating: not at all 6. Feeling bad about yourself - or that you are a failure or have let yourself or your family down: not at all 7. Trouble concentrating on things, such as reading the newspaper or watching television: not at all 8. Moving or speaking so slowly that other people could have noticed. Or the opposite - being so fidgety or restless that you have been moving around a lot more than usual: not at all 9. Thoughts that you would be better off or of hurting yourself in some way: not at all Total score: 2 Depression Screening Interpretation: Negative Depression Screening Done: Yes 91069 - PHQ-9 Billing: Yes Source: Developed by Drs. Romeo Miller, Emilee Chin, Augustine Tate and colleagues, with an educational jamshid from [employer]. Thrive Questionnaire Date Thrive assessed: 05/31/24 I am a: Patient What is your living situation today?: I have a steady place to live Within the past 12 months, did the food you bought not last and you didn't have the money to get more?: Never true Within the past 12 months, did you worry whether your food would run out before you got money to buy more?: Never true Do you have trouble paying for medicines?: I choose not to answer this question Do you have trouble getting transportation to medical appointments?: No Do you have trouble paying your heating and electricity bill?: No Do you have trouble taking care of your child, family member or friend?: No Do you have trouble with day-to-day activities such as bathing, preparing meals, shopping, managing finances, etc.?: No Are you currently unemployed and looking for a job?: I choose not to answer this question Are you interested in more education?: No Please select the resources that you would like help with: None Currently or been in a relationship where the following occur: I choose not to answer THRIVE Score: 0 AUDIT C Alcohol Use Questionnaire (AUDIT-C) 1. How often do you have a drink containing alcohol?: Never 3. How often do you have six or more drinks on one occasion?: Never Total Score: 0 Score Reviewed/Action Taken: Yes VANESSA-7 AMB Questionnaire VANESSA-7 Date VANESSA - 7 assessed: 05/31/24 Feeling nervous, anxious, or on edge: 0 = Not at all Not being able to stop or control worryin = Not at all Worrying too much about different things: 0 = Not at all Trouble relaxin = Not at all Being so restless that it is hard to sit still: 0 = Not at all Becoming easily annoyed or irritable: 0 = Not at all Feeling afraid as if something awful might happen: 0 = Not at all Total VANESSA-7 score (0-4 normal; 5-9 mild; 10-14 moderate; 15-21 severe): 0 Source: Developed by Drs. Romeo Miller, Emilee Chin, Augustine Tate and colleagues, with an educational jamshid from [employer]. VANESSA-7 Assessment Billing VANESSA-7 Assessment Tool: VANESSA-7 Assessment 03839 Review of Systems Const Denies chills, Denies fever(s) and Denies headache(s) Eyes Denies blurry vision ENT Denies headache(s), Denies nasal discharge, Denies nasal obstruction, Denies odynophagia and Denies sinus pain Card Denies chest pain at rest and Denies chest pain with activity Resp Denies cough and Denies hemoptysis GI Denies diarrhea, Denies odynophagia, Denies vomiting and Denies hematemesis Reports as per HPI Musc Denies abnormal gait Skin/Breast Reports as per HPI Neuro Denies Neuro-related abnormal movements, Denies Abnormal speech present, Denies abnormal gait, Denies headache(s) and Denies Sensory deficit (Neuro) Psych Denies mood swings and Denies paranoia Endo Reports as per HPI Perez/Lymph Reports as per HPI Aller/Immun Reports as per HPI Physical exam (Primary Care) Vital Signs: Last Vital Signs Pulse 70 10/29/24 14:14 BP 122/74 05/31/24 14:14 Pulse Ox 99 05/31/24 14:14 Oxygen Delivery Method Room Air 05/31/24 14:14 BMI result Body Mass Index 32.9 Tobacco/Smoking Status: Tobacco use Status Tobacco use date assessed 05/31/24 05/31/24 14:18 Patient Tobacco Use Status Current everyday Tobacco 05/31/24 14:18 Tobacco use type 05/08/23 15:33 e-Cigarette/Vaping Use Never Used 05/31/24 14:18 PHQ-9: PHQ-9 Score PHQ-9: Total score 2 05/31/24 14:20 Depression Screening Interpretation: Negative Thrive Assessment: Date of Thrive Assessment Date Thrive assessed 05/31/24 05/31/24 14:20 Currently or been in a relationship where the following occur: I choose not to answer Const General: cooperative, comfortable and no acute distress Orientation/consciousness: patient oriented x3 HENMT Head: Yes normocephalic and Yes atraumatic Eyes General: appearance normal, both eyes and all related structures Pupils: Equal, round and reactive pupils present EOM: EOMs intact bilaterally Neck Neck: Yes supple and No lymphadenopathy Thyroid: Thyroid normal Lymphatic: no lymphadenopathy noted Resp Effort & Inspection: normal respiratory effort and able to speak in complete sentences Auscultation: clear to auscultation bilaterally Cardio Heart sounds: S1 normal heart sound present and S2 normal heart sound present GI Palpation (GI): Soft to palpation and nontender Auscultation: normal bowel sounds General: Yes no CVA tenderness Back/Spine/Pelvis Back: no CVA tenderness Skin Other: Scaly rash right ear external, peeling rash left foot mostly on the side General skin exam: elasticity normal and turgor normal Neuro General: patient oriented x3 and gait normal Cranial nerves: Yes Equal, round and reactive pupils present Speech: No Abnormal speech present Sensory Exam: No Sensory deficit (Neuro) Coordination: tandem gait normal and Romberg test negative Extrem General: Yes normal exam except as noted and No edema Coding Level of Care Code Est Pt Level 3 (35309) Est Pt Prev Care 40-64y(34320) Diagnoses Encounter for general adult medical examination with abnormal findings Z00.01 Dermatosis L98.9 Vitamin D deficiency E55.9 Neuropathy G62.9 Iron deficiency anemia due to chronic blood loss D50.0 Iron deficiency anemia type: chronic blood loss Additional Codes VANESSA-7 Assessment Billing - VANESSA-7 Assessment Tool: VANESSA-7 Assessment 73085 ([id number]) Assessment & Plan Assessment & Plan (1) Encounter for general adult medical examination with abnormal findings: Code(s): Z00.01 - Encounter for general adult medical examination with abnormal findings Category: Medical (2) Dermatosis: Code(s): L98.9 - Disorder of the skin and subcutaneous tissue, unspecified Category: Medical (3) Vitamin D deficiency: Code(s): E55.9 - Vitamin D deficiency, unspecified Category: Medical (4) Neuropathy: Code(s): G62.9 - Polyneuropathy, unspecified Category: Medical (5) Iron deficiency anemia: Code(s): D50.9 - Iron deficiency anemia, unspecified Category: Medical Qualifiers: Iron deficiency anemia type: chronic blood loss Qualified Code(s): D50.0 - Iron deficiency anemia secondary to blood loss (chronic) Plan Physical exam appointment Patient suffers from skin condition she was seeing a supervisor winding department the past 3 years Patient says that they have tried everything and she continued to the problem She does not remember who she saw she will get back to me regarding the name of the doctors we can request notes She will need a 2nd opinion Mammogram is up-to-date OBGYN visit is up-to-date She continued to smoke once again advised to stop smoking Complaining of feeling cold I have added TSH level Labs are needed to be done fasting Orders: Orders Comprehensive [place]. Panel Fast Today D50.9 - Iron deficiency anemia, unspecified, E55.9 - Vitamin D deficiency, unspecified, G62.9 - Polyneuropathy, unspecified, G89.29 - Other chronic pain, M53.3 - Sacrococcygeal disorders, not elsewhere classified, Z00.01 - Encounter for general adult medical examination with abnormal findings Lipid Panel Today D50.9 - Iron deficiency anemia, unspecified, E55.9 - Vitamin D deficiency, unspecified, G62.9 - Polyneuropathy, unspecified, G89.29 - Other chronic pain, M53.3 - Sacrococcygeal disorders, not elsewhere classified, Z00.01 - Encounter for general adult medical examination with abnormal findings TSH reflex Free T4 Today D50.9 - Iron deficiency anemia, unspecified, E55.9 - Vitamin D deficiency, unspecified, G62.9 - Polyneuropathy, unspecified, G89.29 - Other chronic pain, M53.3 - Sacrococcygeal disorders, not elsewhere classified, Z00.01 - Encounter for general adult medical examination with abnormal findings Complete Blood Count Auto Diff Today D50.9 - Iron deficiency anemia, unspecified, E55.9 - Vitamin D deficiency, unspecified, G62.9 - Polyneuropathy, unspecified, G89.29 - Other chronic pain, M53.3 - Sacrococcygeal disorders, not elsewhere classified, Z00.01 - Encounter for general adult medical examination with abnormal findings Vitamin D 25-OH (D2 and D3) Today D50.9 - Iron deficiency anemia, unspecified, E55.9 - Vitamin D deficiency, unspecified, G62.9 - Polyneuropathy, unspecified, G89.29 - Other chronic pain, M53.3 - Sacrococcygeal disorders, not elsewhere c lassified, Z00.01 - Encounter for general adult medical examination with abnormal findings
== END 2024-05-31 14:46 | disposition home or self-care (01) ==
LOC: HO.HMCC 14:08
PROVIDERS: PCP Internal Medicine; Visit Provider Internal Medicine
DX: Z00.00 Encounter for general adult medical examination without abnormal findings (principal); L98.9 Disorder of the skin and subcutaneous tissue, unspecified; E55.9 Vitamin D deficiency, unspecified; G62.9 Polyneuropathy, unspecified; D50.0 Iron deficiency anemia secondary to blood loss (chronic)

== ENCOUNTER → 2024-05-31 14:07 | Outpatient (BNVA) | payer OTHER, SELFPAY | PROVIDERS: PCP Internal Medicine; Visit Provider Internal Medicine | DX: Z00.01 Encounter for general adult medical examination with abnormal findings (principal); L98.9 Disorder of the skin and subcutaneous tissue, unspecified; E55.9 Vitamin D deficiency, unspecified; G62.9 Polyneuropathy, unspecified; D50.0 Iron deficiency anemia secondary to blood loss (chronic) | CPT/HCPCS: 96127 ==

== ENCOUNTER 2024-06-02 12:54 | Outpatient (REF) | payer OTHER, SELFPAY ==
[2024-06-02 16:35] LABS: MANUAL DIFF FLAG NO
[2024-06-02 16:50] LABS: Basophils Absolute Auto 0.1 X10*3/uL (0.0-0.2); Basophils Percent Auto 1.7 % (0-2); Eosinophils Absolute Auto 0.2 X10*3/uL (0.0-0.4); Eosinophils Percent Auto 3.9 % (0-4); Hematocrit 38.3 % (37.0-47.0); Imm Gran Abs Auto 0.01 X10*3/uL (0.00-0.03); Imm Gran Pct Auto 0.2 % (0.0-0.4); Lymphocytes Absolute Auto 1.9 X10*3/uL (1.2-4.9); Lymphocytes Percent Auto 46.6 % (20-40); Mean Corpuscular HGB Conc 33.9 g/dl (31.0-35.0); Mean Corpuscular Hemoglobin 30.2 pg (27.0-33.0); Mean Corpuscular Volume 89.1 fL (80.0-98.0); Monocytes Absolute Auto 0.3 X10*3/uL (0.1-1.2); Neutrophils Absolute Auto 1.6 x10*3/uL (2.0-8.3); Neutrophils Percent Auto 39.6 % (45-73); Platelet Count 235 X10*3/uL (160-400); Red Cell Distribution Width 12.9 % (11.0-16.0); White Blood Count 4.1 X10*3/uL (4.8-10.8)
[2024-06-02 17:05] LABS: Alanine Aminotransferase 20 U/L (0-31); Albumin Level 4.1 g/dL (3.5-5.0); Alkaline Phosphatase 74 U/L (39-117); Anion Gap 13 (12-20); Aspartate Amino Transferase 27 U/L (5-31); Bilirubin Total 0.4 mg/dL (0.0-1.0); Blood Urea Nitrogen 11 mg/dL (9-16); Calcium 9.1 mg/dL (8.4-10.2); Carbon Dioxide 28 mmol/L (22-29); Chloride 106 mmol/L (96-108); Cholesterol 172 mg/dL (<200); Estimated Glomerular Filt Rate > 60; Glucose Fasting 80 mg/dL (60-99); HDL Cholesterol 47 mg/dL (>40); LDL Cholesterol Calculated 108 mg/dL (<100); Potassium 4.2 mmol/L (3.3-5.1); Sodium 143 mmol/L (135-145); Total Protein 7.1 g/dL (6.5-8.0); Triglycerides 86 mg/dL (<150)
[2024-06-02 17:21] LABS: TSH reflex Free T4 0.98 uIU/mL (0.32-4.0)
[2024-06-08 15:39] LABS: Vitamin D 25-OH, D2 <4 ng/mL; Vitamin D 25-OH, D3 11 ng/mL; Vitamin D 25-OH, Total 11 ng/mL (30-100)
== END 2024-06-02 12:55 | disposition home or self-care (01) ==
LOC: HO.HMGCLDS 12:54
PROVIDERS: PCP Internal Medicine; Visit Provider Internal Medicine
DX: Z00.01 Encounter for general adult medical examination with abnormal findings (principal); M53.3 Sacrococcygeal disorders, not elsewhere classified; G89.29 Other chronic pain; E55.9 Vitamin D deficiency, unspecified; G62.9 Polyneuropathy, unspecified; D50.9 Iron deficiency anemia, unspecified
CPT/HCPCS: 36415; 80053; 80061; 82306; 84443; 85025

== ENCOUNTER 2025-06-06 13:41 | Outpatient (AMB) | payer OTHER, SELFPAY ==
[2025-06-06 13:45] VITALS: BP 122/76; PULSE 76; O2SAT 97; BMI 28.0
--- NOTE | 2025-06-06 13:45 | MHC.PC.OV ---
Vital Signs 06/06/25 13:45 Height 5 ft 5 in Weight 168 lb BMI 28.0 BP 122/76 Blood Pressure Location Lt brachial Position Sitting Pulse 76 Pulse Source Pulse Oximeter Pulse Oximetry (%) 97 Intake Visit Reasons: Annual PE Allergies latex Allergy (Verified 06/06/25 13:46) Rash Medication List - Last Reconciled 06/06/25 by Cydney Kern MD acetaminophen ER (Arthritis Pain Relief (acetaminophen) ER) 650 mg PO Q12H PRN 90 days cholecalciferol (vitamin D3) 25 mcg PO DAILY 90 days Tobacco use date assessed: 05/31/24 Dental Screening Dental Screen Date: 05/31/24 HPI Annual PE HPI Details History of Present Illness The patient is a 45-year-old female presenting for an annual physical examination. Health Maintenance: - The patient is due for a mammogram, with the last one being in September 2023. - Her last Pap smear was at the same time as her mammogram, and she is due for an HOURLY SIGN LANGUAGE INTERPRETER visit. - At age 45, she is now eligible for a screening colonoscopy but has opted to defer this discussion until next year. - Her last tetanus vaccination was in 2014, making her due for a booster. Vitamin D Deficiency: - Blood tests from May of last year revealed a low vitamin D level. - The patient reports she is currently taking vitamin D. Arthritis: - The patient reports taking Tylenol, believing it was a necessary daily medication for arthritis pain History of fall: - The patient sustained a fall about a month ago which resulted in being unable to sit for one week. - She received physical therapy for the injury, which she found to be effective. Medical History: - Arthritis - Vitamin D deficiency, diagnosed in May of last year - History of a fall approximately one month ago, treated with physical therapy Social History: - Employment: The patient is currently working. 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 Health Maintenance - Mammogram: Due. The last screening was in September 2023. An order will be placed for a new one. - HOURLY SIGN LANGUAGE INTERPRETER visit: Due. The last visit was in September 2023. The patient needs to schedule an appointment. - Colonoscopy: Recommended as the patient is 45 years old. She has opted to defer the screening and will discuss it again next year. - Tetanus vaccine: Due, as the last one was in 2014. The vaccine will be administered today. - Influenza vaccine: Declined. - Laboratory tests: Fasting bloodwork, including a vitamin D level, is ordered to be repeated. Goree of Care - Patient was advised to schedule an appointment with an HOURLY SIGN LANGUAGE INTERPRETER. - Patient has previously seen a physical therapist for a fall. Diagnostic results - Labs: Vitamin D level was low on a test from May of the previous year. - Imaging: Last mammogram was in September 2023. - Tests: Last Pap smear was in September 2023. Patient Instructions - You will need to get a mammogram. The order has been sent. - Please call and schedule an appointment with your HOURLY SIGN LANGUAGE INTERPRETER for a check-up. - Take Tylenol only if you are having pain. Do not take it every day . - An order for blood tests has been placed. You need to fast - Please wait in the room to receive your tetanus vaccine today. - We will see you back in one year for your next check-up. Review of Systems - General: No fever no chills - Neurological: No headaches no dizziness - Ear nose throat: No sore throat no hearing difficulty no ear pain - Cardiovascular: No syncope, no chest pain, no palpitations - Gastrointestinal: No nausea vomiting or diarrhea - Endocrine: No polyuria polydipsia no heat intolerance - Genitourinary: No dysuria - Skin: No new complaints Physical Exam General: Cooperative, healthy appearing, comfortable, no acute distress Orientation: Patient oriented x3 Limitations: none Head: Normal to inspection Ears: Within normal limit visually Nose: Normal external nose present Face and sinus: Normal facial exam Eyes: Appearance normal, extraocular movement intact pupils reactive Neck: Normal visual inspection and supple Respiratory: Normal respiratory effort and able to speak in complete sentences. Clear to auscultation, no stridor Cardiovascular: S1 and S2 RRR Breast exam benign GI: Normal to inspection. Soft to palpation and nontender Skin: Turgor normal, no acute findings Neuro: Patient oriented x3, motor sensory intact, balance intact, tandem pass Extremities: Normal to inspection, no swelling, joints are okay, knees are okay, arms are okay . [facility] Medical History Pulmonary embolism Eczema Anemia Ulnar neuropathy Thyroid nodule Surgical History H/O toe surgery Hx of tubal ligation Family History Father Heart disease Hyperlipidemia Mother Diabetes mellitus Hyperlipidemia Maternal Aunt History of breast cancer Social History Household Members: Spouse and Children Housing: House Are you a primary adult care provider to a significant other at home: No Do you presently have visiting nurse or other home services: No Alcohol intake: never Patient Tobacco Use Status: Current everyday Tobacco user Years Smoked: 17 yrs e-Cigarette/Vaping Use: Never Used Second Hand Smoke Exposure: Yes service: No Current occupational status: employed 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 1. Little interest or pleasure in doing things: not at all 2. Feeling down, depressed, or hopeless: not at all 3. Trouble falling or staying asleep, or sleeping too much: not at all 4. Feeling tired or having little energy: more than half the days 5. Poor appetite or overeating: not at all 6. Feeling bad about yourself - or that you are a failure or have let yourself or your family down: not at all 7. Trouble concentrating on things, such as reading the newspaper or watching television: not at all 8. Moving or speaking so slowly that other people could have noticed. Or the opposite - being so fidgety or restless that you have been moving around a lot more than usual: not at all 9. Thoughts that you would be better off or of hurting yourself in some way: not at all Total score: 2 Depression Screening Interpretation: Negative Depression Screening Done: Yes 21800 - PHQ-9 Billing: Yes Source: Developed by Drs. Romeo Miller, Emilee Chin, Augustine Tate and colleagues, with an educational jamshid from [employer] Thrive Questionnaire Date Thrive assessed: 05/31/24 I am a: Patient What is your living situation today?: I have a steady place to live Within the past 12 months, did the food you bought not last and you didn't have the money to get more?: Never true Within the past 12 months, did you worry whether your food would run out before you got money to buy more?: Never true Do you have trouble paying for medicines?: I choose not to answer this question Do you have trouble getting transportation to medical appointments?: No Do you have trouble paying your heating and electricity bill?: No Do you have trouble taking care of your child, family member or friend?: No Do you have trouble with day-to-day activities such as bathing, preparing meals, shopping, managing finances, etc.?: No Are you currently unemployed and looking for a job?: I choose not to answer this question Are you interested in more education?: No Please select the resources that you would like help with: None Currently or been in a relationship where the following occur: I choose not to answer THRIVE Score: 0 VANESSA-7 AMB Questionnaire VANESSA-7 Date VANESSA - 7 assessed: 05/31/24 Source: Developed by Drs. Romeo Miller, Emilee Chin, Augustine Tate and colleagues, with an educational jamshid from [employer] Physical exam (Primary Care) Vital Signs: Last Vital Signs Pulse 76 06/06/25 13:45 BP 122/76 06/06/25 13:45 Pulse Ox 97 06/06/25 13:45 BMI result Body Mass Index 28.0 Tobacco/Smoking Status: Tobacco use Status Tobacco use date assessed 05/31/24 06/06/25 13:48 Patient Tobacco Use Status Current everyday Tobacco 06/06/25 13:48 Tobacco use type 05/08/23 15:33 e-Cigarette/Vaping Use Never Used 06/06/25 13:48 PHQ-9: PHQ-9 Score PHQ-9: Total score 2 06/06/25 14:16 Depression Screening Interpretation: Negative Thrive Assessment: Date of Thrive Assessment Date Thrive assessed 05/31/24 06/06/25 13:48 Currently or been in a relationship where the following occur: I choose not to answer Immunizations Boostrix Tdap 2.5 Lf unit-8 mcg-5 Lf/0.5 mL intramuscular syringe Performing Provider: Cydney Kern MD Performing Location: [facility] Administered by: Ashish Oconnor CMA on 06/06/25 14:12 Dose Route Admin Location Dispensed Lot Number Expiration Date NDC Family Medicine Chair 0.5 mL IM Left Deltoid 0.5 mL [id number] 01/13/28 [id number] [employer] Total Dispensed Waste 0.5 mL 0 % VIS Given Date VIS Provided VIS Publication Date 06/06/25 Single Vaccine 21 Eligibility Eligibility Date Funding Source Not [facility] Eligible 06/06/25 Private Coding Level of Care Code Est Pt Prev Care 40-64y(27076) Diagnoses Adult general medical exam Z00.00 Vitamin D deficiency E55.9 Additional Codes PHQ-9 - 42330 - PHQ-9 Billing: Yes ([id number]) Assessment & Plan Assessment & Plan (1) Adult general medical exam: Code(s): Z00.00 - Encounter for general adult medical examination without abnormal findings Category: Medical (2) Vitamin D deficiency: Code(s): E55.9 - Vitamin D deficiency, unspecified Category: Medical Plan Health Maintenance: - The patient is due for a mammogram, with the last one being in September 2023. - Her last Pap smear was at the same time as her mammogram, and she is due for an HOURLY SIGN LANGUAGE INTERPRETER visit. - At age 45, she is now eligible for a screening colonoscopy but has opted to defer this discussion until next year. - Her last tetanus vaccination was in 2014, making her due for a booster. Vitamin D Deficiency: - Blood tests from May of last year revealed a low vitamin D level. - The patient reports she is currently taking vitamin D. Arthritis: - The patient reports taking Tylenol, believing it was a necessary daily medication for arthritis pain History of fall: - The patient sustained a fall about a month ago which resulted in being unable to sit for one week. - She received physical therapy for the injury, which she found to be effective. Medical History: - Arthritis - Vitamin D deficiency, diagnosed in May of last year - History of a fall approximately one month ago, treated with physical therapy Social History: - Employment: The patient is currently working. 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 Health Maintenance - Mammogram: Due. The last screening was in September 2023. An order will be placed for a new one. - HOURLY SIGN LANGUAGE INTERPRETER visit: Due. The last visit was in September 2023. The patient needs to schedule an appointment. - Colonoscopy: Recommended as the patient is 45 years old. She has opted to defer the screening and will discuss it again next year. - Tetanus vaccine: Due, as the last one was in 2014. The vaccine will be administered today. - Influenza vaccine: Declined. - Laboratory tests: Fasting bloodwork, including a vitamin D level, is ordered to be repeated. Goree of Care - Patient was advised to schedule an appointment with an HOURLY SIGN LANGUAGE INTERPRETER. - Patient has previously seen a physical therapist for a fall. Diagnostic results - Labs: Vitamin D level was low on a test from May of the previous year. - Imaging: Last mammogram was in September 2023. - Tests: Last Pap smear was in September 2023. Patient Instructions - You will need to get a mammogram. The order has been sent. - Please call and schedule an appointment with your HOURLY SIGN LANGUAGE INTERPRETER for a check-up. - Take Tylenol only if you are having pain. Do not take it every day . - An order for blood tests has been placed. You need to fast - Please wait in the room to receive your tetanus vaccine today. - We will see you back in one year for your next check-up. . Orders: Orders MM tomosynthesis screening BI Today Z12.31 - Encounter for screening mammogram for malignant neoplasm of breast Complete Blood Count Auto Diff Today E55.9 - Vitamin D deficiency, unspecified, Z00.00 - Encounter for general adult medical examination without abnormal findings TDaP Immunization Today Z23 - Encounter for immunization Comprehensive [place]. Panel Fast Today E55.9 - Vitamin D deficiency, unspecified, Z00.00 - Encounter for general adult medical examination without abnormal findings Lipid Panel Today E55.9 - Vitamin D deficiency, unspecified, Z00.00 - Encounter for general adult medical examination without abnormal findings Vitamin D 25-OH (D2 and D3) Today E55.9 - Vitamin D deficiency, unspecified, Z00.00 - Encounter for general adult medical examination without abnormal findings Medications: Refilled cholecalciferol (vitamin D3) 25 mcg PO DAILY 90 caps 3RF 90 days acetaminophen ER (Arthritis Pain Relief (acetaminophen) ER) 650 mg PO Q12H PRN 180 tabs 1RF pain 90 days
--- OUTSIDE RECORDS SUMMARY | 2025-06-06 16:50 | XMS_ITS | Clinical Summary ---
Author Organization [facility] Address [address] [phone] Phone Care Team Providers Care Manager Managed Care Name Role Phone Pcp, Unknown Primary Care Provider Unavailabl e Social History Tobacco Use Types Packs/Day Years Used Date Smoking Tobacco: Never Assessed Education Answer Date Recorded Are you interested in more education? Not on pieter e 12/21/2023 Are you concerned about learning? Not on file 12/21/2023 No 12/21/2023 No 12/21/2023 Digital Access Answer Date Recorded No 12/21/2023 No 12/21/2023 Reliable internet access at home? Not on file 12/21/2023 Device with a working camera? Not on file Comments Unknown Sex and Gender Information Value Date Recorded Sex Assigned at Not on file Legal Sex Female 8:39 AM EDT Gender Identity Not on file Sexual Orientation Not on file Plan of Treatment Health Maintenance Due Date Last Done Comments LIPID PANEL 1980 DEPRESSION SCREENING 1992 HEPATITIS C SCREENING 02/14/1998 HIV ONE-TIME SCREENING (18-6 5 YEARS) 02/14/1998 PAP SMEAR 02/14/2001 MAMMOGRAM 2020 INFLUENZA VACCINE (#1) 2025 06/25/2015 COVID-19 VACCINE (3 - 2024-2 6 season) 2025 05/08/2021, 04/15/2021 Adult Td,Tdap Booster 06/25/2025 06/25/2015 COLORECTAL CANCER SCREENING Completed HEPATITIS A VACCINES Aged Out No long er eligible based on patient's age to complete this topic HIB VACCINES Aged Out No longer eligi ble based on patient's age to complete this topic MENINGOCOCCAL VACCINES (ACWY) Aged Out No longer eligible based on patient's age to complete this topic MENINGOCOCCAL VACCINES (B) Aged Out N o longer eligible based on patient's age to complete this topic PNEUMOCOCCAL VACCINES (0-49 years) Aged Out No longer eligible b ased on patient's age to complete this topic Medical Devices Not on file Insurance [facility] P[facility] Address: [facility] [id number] [place] [address] [facility] PPO [facility] Address: [facility] [id number] [place] [address] Care Teams Manager Managed Care Relationship Specialty Start Date End Date Pcp, Unknown PCP - General 12/21/23 Additional Source Comments The information contained in this document represents components of the legal health record. It is not the complete legal health record.[facility]
== END 2025-06-06 14:19 | disposition home or self-care (01) ==
LOC: HO.HMCC 13:41
PROVIDERS: PCP Internal Medicine; Visit Provider Internal Medicine
DX: Z00.00 Encounter for general adult medical examination without abnormal findings (principal); E55.9 Vitamin D deficiency, unspecified; Z23 Encounter for immunization

== ENCOUNTER → 2025-06-06 13:41 | Outpatient (BNVA) | payer OTHER, SELFPAY | PROVIDERS: PCP Internal Medicine; Visit Provider Internal Medicine | DX: Z00.00 Encounter for general adult medical examination without abnormal findings (principal); E55.9 Vitamin D deficiency, unspecified; Z23 Encounter for immunization; Z91.81 History of falling | CPT/HCPCS: 90471; 90715; 96127 ==

== ENCOUNTER 2025-07-03 06:00 | Outpatient (REF) | payer OTHER, SELFPAY ==
--- OUTSIDE RECORDS SUMMARY | 2025-07-03 06:03 | XMS_ITS | Clinical Summary ---
Author Organization [facility] Address [address] [phone] Phone Care Team Providers Care Rigger Up Name Role Phone Pcp, Unknown Primary Care [...] topic Medical Devices Not on file Insurance [facility] PPO [facility] PPO Care Teams Rigger Up Relationship Specialty Start Date End Date Pcp, Unknown PCP - General 12/21/23 Additional Source Comments The information contained in this document represents components of the legal health record. It is not the complete legal health record.[facility]
[2025-07-03 06:21] LABS: MANUAL DIFF FLAG NO
[2025-07-03 07:20] LABS: Hematocrit 39.4 % (37.0-47.0); Hemoglobin 13.1 g/dl (12.0-16.0); Imm Gran Abs Auto 0.01 X10*3/uL (0.00-0.03); Imm Gran Pct Auto 0.2 % (0.0-0.4); Lymphocytes Absolute Auto 2.0 X10*3/uL (1.2-4.9); Mean Corpuscular HGB Conc 33.2 g/dl (31.0-35.0); Mean Corpuscular Hemoglobin 29.6 pg (27.0-33.0); Mean Corpuscular Volume 89.1 fL (80.0-98.0); NRBC Abs Auto 0.000 X10*3/uL (0.0-0.012); NRBC Pct Auto 0.0 /100WBC (0.0-0.2); Platelet Count 224 X10*3/uL (160-400); Red Blood Count 4.42 X10*6/uL (4.20-5.50); White Blood Count 4.4 X10*3/uL (4.8-10.8)
[2025-07-03 07:49] LABS: Alanine Aminotransferase 25 U/L (0-31); Albumin Level 4.5 g/dL (3.5-5.0); Alkaline Phosphatase 78 U/L (39-117); Anion Gap 10 (12-20); Aspartate Amino Transferase 26 U/L (5-31); Blood Urea Nitrogen 12 mg/dL (9-16); Calcium 9.2 mg/dL (8.4-10.2); Carbon Dioxide 31 mmol/L (22-29); Chloride 105 mmol/L (96-108); Cholesterol 177 mg/dL (<200); Estimated Glomerular Filt Rate > 60; HDL Cholesterol 56 mg/dL (>40); Potassium 4.2 mmol/L (3.3-5.1); Sodium 142 mmol/L (135-145); Total Protein 7.2 g/dL (6.5-8.0); Triglycerides 63 mg/dL (<150)
== END 2025-07-03 06:01 | disposition home or self-care (01) ==
LOC: HO.LAB 06:00
PROVIDERS: PCP Internal Medicine; Visit Provider Internal Medicine
DX: Z00.00 Encounter for general adult medical examination without abnormal findings (principal); Z13.6 Encounter for screening for cardiovascular disorders; E55.9 Vitamin D deficiency, unspecified
CPT/HCPCS: 36415; 80053; 80061; 82306; 85025